=== PATIENT | male | born 1945 | race Caucasian/White ===

== ENCOUNTER 2019-03-10 07:06 | Emergency (ER) | payer MEDICARE, BC, SELFPAY ==
[2019-03-10 07:21] VITALS: BP 158/96; PULSE 79; RESP 18; TEMP 36.9; O2SAT 95
--- NOTE | 2019-03-10 07:33 | ED.GENADUL_ITS ---
Discharge Plan Disposition Patient Disposition: HOME Condition: Good Discharge Details Chief Complaint: Urinary Clinical Impression: UTI (urinary tract infection) Primary Care Provider: Vero Pagan V ED Provider: Rolando Mitchell Home Meds and New Rx's Prescriptions: New levofloxacin 500 mg tablet 500 mg PO DAILY Qty: 6 RF: 0 Continued travoprost [Travatan Z] 2.5 ML drops 1 drp Ophthalmic DAILY RF: 0 finasteride 5 MG tablet 5 mg PO DAILY Qty: 30 RF: 0 epinephrine 0.3 MG/SYR auto-injector 0.3 mg IJ DIRECTED RF: 0 Discharge Instructions Instructions: Levofloxacin (By mouth), Urinary Tract Infection in Men (ED) Additional Instructions: Urine has been sent off for culture. Please restart the finasteride. Please take the levofloxacin as directed. Call for follow-up appointment with Dr. Olmos next week. Return to the ED over the weekend if you develop fever,\flank pain, abdominal pain, inability or difficulty urinating. Referrals: Rich Olmos MD [ [facility] STAFF PHYSICIAN] - Medical Decision Making 73-year-old gentleman presenting with gross hematuria. He is afebrile here. His vital signs are good. He has no CVAT. His abdomen is benign. He has had a previous work-up for hematuria. Patient has seen Dr. Olmos in the past. He is no longer taking the finasteride. Previous episode 5 years ago was thought to be related to UTI and prostatitis. Case discussed with Dr. Olmos directly. As patient has had hematuria work-up previously and is presenting with gross hematuria but otherwise looks and feels well recommend restarting finasteride and starting Levaquin for treatment. Patient history includes allergy to ciprofloxacin but when I discussed this with patient he denies stating that he has had Cipro without problem. Urine sent for urine culture. Will obtain bladder scan and if no significant retention will avoid catheter for now. Follow-up with Dr. Olmos next week. Return to the ED over the weekend if any fever, flank pain, abdominal pain, inability to urinate, other concerns. HPI General Mode of arrival: ambulatory . Date/Time Provider Initiated Documentation: 03/10/19 07:33 . Limitations to Documentation: no limitations . Information obtained by: patient . HPI Narrative: Patient presents to ED with complaint of dark/bloody urine. Symptoms started last night. He has been up most of the night urinating but does not have a sense of urgency currently. He has no dysuria. He has no flank pain or abdominal pain. He has had no fevers or chills that he is aware of but did wake up sweating last night. He is not on blood thinners. He has a prior history of gross hematuria with clots about 5 years ago. He had a work-up that included renal ultrasound as well as cystoscopy which were negative. He was treated for infection. He has not had issues since then. Related Data Home Medications Medication Instructions Recorded Confirmed travoprost [Travatan Z] 1 drp OPHTHALMIC DAILY drp 08/28/15 06/15/17 epinephrine 0.3 mg IJ DIRECTED 06/12/17 06/12/17 finasteride 5 mg PO DAILY #30 tab-cap 03/10/19 levofloxacin 500 mg PO DAILY #6 tab 03/10/19 Previous Rx's Medication Instructions Recorded finasteride 5 mg PO DAILY #30 tab-cap 03/10/19 levofloxacin 500 mg PO DAILY #6 tab 03/10/19 Allergies Allergy/AdvReac Type Severity Reaction Status Date / Time ciprofloxacin HCl Allergy Unknown Unverified 06/15/17 09:54 [From Cipro] amoxicillin [Amoxicillin] AdvReac Unverified 06/15/17 09:54 General Stated Complaint: Urinary ILA: 4 Review of Systems Review of Systems As documented in HPI otherwise negative as below. Const: no fever, chills, weakness Resp: no cough, SOB, pleuritic pain CV: no CP, diaphoresis, edema, syncope GI: no abdominal pain, nausea, vomiting, diarrhea Neuro: no headache, numbness, focal weakness, confusion [facility] Medical History BPH (benign prostatic hyperplasia) (Chronic) Surgical History S/P appendectomy (Acute) S/P hernia repair (Acute) Social History Smoking/Tobacco Use Status: Former Tobacco Use Alcohol Intake: never Drug use: Never Do you feel safe at home: Yes Do you feel safe in your relationship?: Yes Exam Narrative Exam Narrative: Vitals: Afebrile with normal vitals except elevated BP. Const: Obese male in NAD. HEENT: NC/AT. Normal facial exam. Lungs: Normal respiratory effort. GI: Soft. NT/ND. No guarding or rebound. Back: No CVAT. Neuro: A+O x 3. CN grossly in tact. Good strength and no focal deficit. Course Vital Signs Temperature 98.4 F 03/10/19 07:21 Pulse 79 03/10/19 07:21 Respiratory Rate 18 03/10/19 07:21 Blood Pressure 158/96 H 03/10/19 07:21 Pulse Oximetry 95 03/10/19 07:21 Temperature 98.4 F 03/10/19 07:21 Temperature Source Temporal Artery Scan 03/10/19 07:21 Pulse 79 03/10/19 07:21 Respiratory Rate 18 03/10/19 07:21 Blood Pressure 158/96 H 03/10/19 07:21 Blood Pressure Position Sitting 03/10/19 07:21 Pulse Oximetry 95 03/10/19 07:21 Oxygen Delivery Method Room Air 03/10/19 07:21 Oxygen Flow Rate 0 03/10/19 07:21
[2019-03-10] MEDS: levoFLOXacin 500 MG TAB PO (08:29)
== END 2019-03-10 08:29 | disposition home or self-care (01) ==
PROVIDERS: Emergency Provider Emergency Medicine; PCP Family Medicine
DX: N39.0 Urinary tract infection, site not specified (principal); N40.1 Benign prostatic hyperplasia with lower urinary tract symptoms; R31.0 Gross hematuria
CPT/HCPCS: 99283; 81003

== ENCOUNTER 2019-03-10 17:49 | Observation (INO) | payer MEDICARE, BC, SELFPAY ==
[2019-03-10 17:59] VITALS: BP 168/89; PULSE 94; RESP 16; TEMP 36.5; O2SAT 95
--- NOTE | 2019-03-10 18:12 | W.ED.GENAD ---
Discharge Plan Disposition Patient Disposition: [facility] INPATIENT Condition: Fair Discharge Details Chief Complaint: Urinary Clinical Impression: Acute urinary retention, Gross hematuria Primary Care Provider: Vero Pagan V ED Provider: Rolando Mitchell Home Meds and New Rx's Prescriptions: Continued Travatan Z 2.5 ML drops 1 drp Ophthalmic DAILY RF: 0 levofloxacin 500 mg tablet 500 mg PO DAILY Qty: 6 RF: 0 finasteride 5 MG tablet 5 mg PO DAILY Qty: 30 RF: 0 epinephrine 0.3 MG/SYR auto-injector 0.3 mg IJ DIRECTED RF: 0 Medical Decision Making <Markell Messina MD - Last Filed: 03/10/19 19:45> 73-year-old male with a history of BPH, seen earlier this morning with hematuria, diagnosed with urinary tract infection, placed on Levaquin, discharged home. He now returns this evening with urinary hesitancy, difficulty starting flow of urine and ongoing hematuria. Mildly uncomfortable with pressure 168/89. Bedside bladder scan with 500 cc of retained urine. Three-way Gomez catheter placed, bladder irrigated with return of pink-colored urine and no further obstruction. Screening laboratories obtained: CBC shows a white count of 6, hematocrit 47, platelets 204. Chemistries reassuring with a BUN of 8, creatinine of 0.8 Case was discussed with Dr. Olmos. As the patient initially has been able to clear his urinary obstruction, he likely will be stable for discharge to home with a leg bag, and will be followed up in urology clinic. He is to continue the previously prescribed antibiotic. Will sign out to Dr. Mitchell pending review of patient's response to ongoing Gomez irrigation. <Rolando Mitchell MD - Last Filed: 03/10/19 21:37> Patient signed out to me to reevaluate after three-way Gomez placed for gross hematuria. Patient continues to clot off. I personally manipulated the Gomez and hand irrigated. Clots were removed. Within half an hour of CBI he had clotted off again. He is not on blood thinners. His laboratory studies are fine. I spoke with Dr. Olmos. He requested that we obtain hematuria catheter (24 [place] three-way Gomez) from the OR. Gomez was replaced and CBI restarted. Patient to be admitted overnight for CBI and evaluation by Dr. Olmos in the morning. We will continue Levaquin and finasteride. Will make n.p.o. after midnight. Lab Data Lab results reviewed: Yes I reviewed the patient's lab results. HPI <Markell Messina MD - Last Filed: 03/10/19 19:45> General Mode of arrival: ambulatory. Date/Time Provider Initiated Documentation: 03/10/19 18:03. Limitations to Documentation: no limitations. Information obtained by: patient. History of Present Illness 73 year old M presents to the emergency department with the chief complaint of Urinary urgency, decreased flow, described as mild, Quality is described as dull and constant, and is localized to the pelvis and genitals. Patient reports no radiation. Patient started experiencing this hour(s) and it has been constant. No relieving factors improve symptom(s), No exacerbating factors reported . Patient notes no other symptoms.. Patient did receive the following treatments prior to arrival, other (11) Related Data Home Medications Medication Instructions Recorded Confirmed Travatan Z 1 drp OPHTHALMIC DAILY drp 08/28/15 03/10/19 epinephrine 0.3 mg IJ DIRECTED 06/12/17 03/10/19 finasteride 5 mg PO DAILY #30 tab-cap 03/10/19 03/10/19 levofloxacin 500 mg PO DAILY #6 tab 03/10/19 03/10/19 Previous Rx's Medication Instructions Recorded finasteride 5 mg PO DAILY #30 tab-cap 03/10/19 levofloxacin 500 mg PO DAILY #6 tab 03/10/19 Allergies Allergy/AdvReac Type Severity Reaction Status Date / Time ciprofloxacin HCl Allergy Unknown Unverified 03/10/19 19:13 [From Cipro] amoxicillin [Amoxicillin] AdvReac Unverified 03/10/19 19:13 General Stated Complaint: Urinary ILA: 3 Review of Systems <Markell Messina MD - Last Filed: 03/10/19 19:45> Review of Systems No fever or chills, no vomiting, 6 systems reviewed and otherwise negative. PFSH <Markell Messina MD - Last Filed: 03/10/19 19:45> Medical History BPH (benign prostatic hyperplasia) (Chronic) Surgical History S/P appendectomy (Acute) S/P hernia repair (Acute) Social History Smoking/Tobacco Use Status: Former Tobacco Use Alcohol Intake: never Drug use: Never Do you feel safe at home: Yes Do you feel safe in your relationship?: Yes Exam <Markell Messina MD - Last Filed: 03/10/19 19:45> Narrative Exam Narrative: GEN: awake, alert, oriented 3. Pleasant, well groomed, interactive. HEAD: Normocephalic, atraumatic ENT: Mucous membranes moist, oropharynx unremarkable, External ear exam unremarkable EYES: PERRL, EOMI NECK: Full ROM, no MARIO ALBERTO, no menigismus CHEST/RESP: Nontender, clear to auscultation bilateral, no wheeze/rhonchi/rales CARDIOVASCULAR: RRR, no murmur, rub romulo. 2+ Rad pulse bilateral ABDOMEN: Soft, suprapubic mild distention and tenderness without rebound or guarding, no mass. +Bowel sounds EXT: Full ROM, no edema, no rash Neuro: Grossly normal neurologic exam, conversant, interactive. Psych: Speech fluent, thoughts congruent, affect normal Course <Markell Messina MD - Last Filed: 03/10/19 19:45> Vital Signs Temperature 36.5 C 03/10/19 17:59 Pulse 94 H 03/10/19 17:59 Respiratory Rate 16 03/10/19 17:59 Blood Pressure 168/89 H 03/10/19 17:59 Pulse Oximetry 95 03/10/19 17:59 Temperature 36.5 C 03/10/19 17:59 Temperature Source Skin 03/10/19 17:59 Pulse 94 H 03/10/19 17:59 Respiratory Rate 16 03/10/19 17:59 Blood Pressure 168/89 H 03/10/19 17:59 Pulse Oximetry 95 03/10/19 17:59 Oxygen Delivery Method Room Air 03/10/19 17:59 Oxygen Flow Rate 0 03/10/19 17:59 Pain Level 8 03/10/19 17:59 Sign Out <Markell Messina MD - Last Filed: 03/10/19 19:45> Sign Out Data: Sign Out Comment: followup/recheck after bladder irrigation Last updated by Markell Messina MD at 03/10/19 19:46
[2019-03-10 18:34] LABS: Bilirubin Small (Negative); Blood Large (Negative); Clarity Cloudy (Clear); Glucose Negative (Negative); Ketones Trace mg/dL (Negative); Leukocyte Esterase Negative (Negative); Nitrite Negative (Negative); Specific Gravity 1.015 (1.005-1.025)
[2019-03-10 18:46] LABS: Bacteria Few HPF (Negative); C & S Indicated? Yes; Casts Negative LPF (Negative); Crystals Negative HPF (Negative); Epithelial Cells Rare HPF (Negative); Mucus Moderate (Negative); Other Cells Negative (Negative); RBC >50 (0-2)
[2019-03-10 19:23] LABS: Abs Immature Grans 0.01 k/cumm (0.0-0.09); Absolute Basophil Count 0.04 k/cumm (0.0-0.2); Absolute Eosinophil Count 0.15 k/cumm (0.0-0.7); Absolute Lymphocyte Count 1.57 k/cumm (1.2-3.4); Absolute Monocyte Count 0.69 k/cumm (0.11-0.7); Absolute Neutrophil Count 3.76 k/cumm (1.2-6.7); Basophils % 0.6; Eosinophils % 2.4; HCT 47.8 % (40.0-50.0); HGB 16.2 g/dL (13.5-17.5); Immature Grans % 0.2; Lymphocytes % 25.2; Mean Corp. HGB Concentration 33.9 g/dL (32.0-36.0); Mean Corpuscular Hemoglobin 30.1 pg (27.0-33.0); Mean Corpuscular Volume 88.8 fL (80-95); Mean Platelet Volume 10.1 fL (8.0-11.0); Monocytes % 11.1; Neutrophils % 60.5; Platelet Count 204 x1000/uL (130-400); RBC 5.38 m/cumm (4.50-6.00); RBC Distribution Width 13.6 % (11.8-14.1); White Blood Cell Count 6.22 k/cumm (4.4-10.8)
[2019-03-10 19:39] LABS: ALT 20 U/L (12-78); AST 11 U/L (15-37); Albumin 3.3 g/dL (3.4-5.0); Alkaline Phosphatase 94 U/L (46-116); BUN 8 mg/dL (7-18); Bilirubin, Total 0.9 mg/dL (0.2-1.0); CREATININE 0.83 mg/dL (0.70-1.30); Calcium 8.5 mg/dL (8.5-10.1); Chloride 104 mmol/L (98-107); Glucose 100 mg/dL (70-100); Potassium 3.6 mmol/L (3.5-5.1); Sodium 139 mmol/L (136-145); Total Protein 6.7 g/dL (6.4-8.2)
--- NOTE | 2019-03-10 20:32 | NUR.NOTE ---
Nursing Note: After nearly 3,000 ML of fluid irrigating patients bladder the provider went in to manually irrigate the bladder in attempt to break up the clots present in the bladder. Provider got several clots out and since then he had 2 episodes where the catheter became occluded. Patient is now working on his second bag of irrigation fluid. It is running wide open and the color of the drainage is clear at this time.
[2019-03-10 21:44] VITALS: BP 154/98; PULSE 80; RESP 16; TEMP 37; O2SAT 96
[2019-03-10 22:35] VITALS: BP 156/92; PULSE 81; RESP 16; TEMP 37; O2SAT 95
[2019-03-10 22:40] VITALS: BP 154/98; PULSE 80; RESP 16; TEMP 37; O2SAT 96
[2019-03-10] MEDS: Lactated Ringers 1,000 ML 125 ML IV (22:58)
[2019-03-10 23:03] VITALS: BP 156/92; PULSE 81; RESP 18; TEMP 37; O2SAT 95
[2019-03-11] MEDS: Lactated Ringers 1,000 ML 125 ML IV (06:30)
[2019-03-11 07:15] VITALS: BP 158/80; PULSE 80; RESP 18; TEMP 36.8; O2SAT 97
--- NOTE | 2019-03-11 07:38 | HPE_ITS ---
Date of service: 03/11/19 Time of Service: 07:38 Assessment and Plan (1) Clot retention of urine: Current visit: Yes Status: Acute Clinically, it appears that the staff has been able to clear out his clots with hand irrigation alone. I discontinued his bladder irrigation this morning. If the urine remains clear over the next hour or so, we can probably remove his catheter and give him a voiding trial. If the urine returns to a bloody tent, we will leave the catheter, restart bladder irrigation and make arrangements to go to the operating room for cystoscopy and clot evacuation. History of Present Illness Chief Complaint: Clot retention Narrative: This is a 73-year-old gentleman who was last seen in my office over 3 years ago. He has a history of BPH with lower urinary tract symptoms. He also has a history of an elevated PSA. In the past, he had gross hematuria that was evaluated by Dr. Le in 2011. No significant uropathology was identified. He presented to the emergency room yesterday with 24 hours of gross painless hematuria. We started him on an antibiotic pending a urine culture. We also had him restart his finasteride (he had stopped about a year ago) in case the bleeding was from his prostate. We had planned on seeing him as an outpatient. He returned to the emergency room last evening in a lot retention. A catheter was placed. Bladder irrigation was begun but the catheter continued to occlude. He was admitted for bladder irrigation and possible clot evacuation this morning. Since his admission, he has had a few clots and irrigated. He has had some bladder spasms. He is not on any type of anticoagulants. He quit smoking between 5 and 10 years ago. Review of Systems Review of Systems No fevers or chills No dysphasia No diabetes or thyroid No shortness of breath, cough or hemoptysis No chest pain or palpitations No nausea, vomiting, hepatitis, ulcers, jaundice, diarrhea or constipation No seizures, strokes or peripheral neuropathy No bleeding disorders or anemia No gout [facility] Medical History (Updated 03/11/19 @ 07:44 by Rich Olmos MD) BPH (benign prostatic hyperplasia) (Chronic) Clot retention of urine (Acute) Elevated PSA (Acute) Surgical History (Updated 03/11/19 @ 07:42 by Rich Olmos MD) H/O cystoscopy (Acute) S/P appendectomy (Acute) S/P hernia repair (Acute) Social History Smoking/Tobacco Use Status: Former Tobacco Use Alcohol Intake: never Drug use: Never Do you feel safe at home: Yes Do you feel safe in your relationship?: Yes Meds Home Medications Medication Instructions Recorded Confirmed Type Travatan Z 1 drp OPHTHALMIC DAILY drp 08/28/15 03/10/19 History epinephrine 0.3 mg IJ DIRECTED 06/12/17 03/10/19 History finasteride 5 mg PO DAILY #30 tab-cap 03/10/19 03/10/19 Rx levofloxacin 500 mg PO DAILY #6 tab 03/10/19 03/10/19 Rx Allergies Allergy/AdvReac Type Severity Reaction Status Date / Time ciprofloxacin HCl Allergy Unknown Unverified 03/10/19 19:13 [From Cipro] amoxicillin [Amoxicillin] AdvReac Unverified 03/10/19 19:13 Exam Narrative Exam Narrative: He is in no current distress. He is cooperative. He does not appear septic or toxic. His vital signs are documented elsewhere. His chest wall motion is normal. His lungs are clear. Cardiac exam shows a regular rate and rhythm. His abdomen is obese but soft with no guarding or rebound tenderness. A hematuria catheter is in place and is draining clear irrigant with bladder irrigation is a slow rate. I hand irrigated the catheter this morning and did not obtain any clots. He is awake, alert and oriented. Results Labs : 03/10/19 19:14 03/10/19 19:14 Laboratory Results - last 24 hr 03/10/19 03/10/19 03/10/19 18:30 19:14 19:14 WBC 6.22 RBC 5.38 Hgb 16.2 Hct 47.8 MCV 88.8 MCH 30.1 MCHC 33.9 RDW 13.6 Plt Count 204 MPV 10.1 Immature Gran % 0.2 Neutrophils % 60.5 Lymphocytes % 25.2 Monocytes % 11.1 Eosinophils % 2.4 Basophils % 0.6 Absolute Neutrophils 3.76 Absolute Lymphocytes 1.57 Absolute Monocytes 0.69 Absolute Eosinophils 0.15 Absolute Basophils 0.04 Sodium 139 Potassium 3.6 Chloride 104 Carbon Dioxide 27.0 Anion Gap 8.0 BUN 8 Creatinine 0.83 Estimated GFR/1.73 m2 >= 60.00 Glucose 100 Calcium 8.5 Total Bilirubin 0.9 AST 11 L ALT 20 Alkaline Phosphatase 94 Total Protein 6.7 Albumin 3.3 L Urine Color Brown Urine Clarity Cloudy Urine pH 6.0 Ur Specific [place] 1.015 Urine Protein >=300 H Urine Ketones Trace H Urine Blood Large H Urine Nitrite Negative Urine Bilirubin Small H Urine Urobilinogen 1.0 H Ur Leukocyte Esterase Negative Urine RBC >50 H Urine WBC 5-10 Ur Epithelial Cells Rare Urine Crystals Negative Urine Bacteria Few Urine Casts Negative Urine Mucus Moderate Urine Other Negative Ur Culture Indicated? Yes Urine Glucose Negative Last Vital Signs Temp 37 C 03/10/19 23:03 Pulse 81 03/10/19 23:03 Resp 18 03/10/19 23:03 BP 156/92 H 03/10/19 23:03 Pulse Ox 95 03/10/19 23:03
[2019-03-11] MEDS: Finasteride 5 MG TAB PO (08:20)
[2019-03-11] MEDS: levoFLOXacin 500 MG TAB PO (08:20)
--- NOTE | 2019-03-11 12:49 | W.PM.DS.N ---
Date of service: 03/11/19 Time of Service: 12:49 DS: Diagnosis Discharge Diagnosis (1) Clot retention of urine: Status: Acute Discharge Plan Disposition Patient Disposition: HOME Condition: Fair Discharge Details Chief Complaint: Urinary Clinical Impression: Acute urinary retention, Gross hematuria Reason For Visit: GROSS HEMATURIA Admit Date/Time: 03/10/19 21:19 Admit Provider: Rich Olmos Attending Provider: Rich Olmos Primary Care Provider: Vero Pagan V ED Provider: Rolando Mitchell [facility] Course Hospital Course: The patient was admitted and continuous bladder irrigation was begun. We hand irrigated out multiple clots. On the morning after admission, his urine cleared up. We discontinued the bladder irrigation and we were able to remove his catheter. He began voiding on his own. He did pass a clot, but he has been able to empty his bladder. He is being discharged to home today without a catheter. Home Meds and New Rx's Prescriptions: Continued Travatan Z 2.5 ML drops 1 drp Ophthalmic DAILY RF: 0 levofloxacin 500 mg tablet 500 mg PO DAILY Qty: 6 RF: 0 finasteride 5 MG tablet 5 mg PO DAILY Qty: 30 RF: 0 epinephrine 0.3 MG/SYR auto-injector 0.3 mg IJ DIRECTED RF: 0 Discharge Instructions Instructions: Urinary Retention in Men (ED) Additional Instructions: Continue your antibiotic until you hear from my office regarding the urine culture early next week Follow-up in my office in about 1 week. Continue taking the finasteride until your follow-up appointment Stand Alone Forms: Nursing Discharge Form Referrals: Rich Olmos MD [ [facility] STAFF PHYSICIAN] - Activity:: Activity as Tolerated Equipment/Supplies:: No Equipment Needed Diet:: As Tolerated Discharge Orders Discharge Orders: Discharge Order (Routine); Ordered 03/11/19 Ordered By: Rich Olmos Exam Narrative Exam Narrative: He looks well. He does not appear septic or toxic. His vital signs are documented elsewhere. His lungs are clear Cardiac exam shows a regular rate and rhythm His abdomen is obese but soft. On bladder scan, his residual urine is less than 50 cc He is awake and alert His urine is grossly transparent with a clot in the urinal DS: Data Vitals/I&O Vitals and I&O: Vital Signs Temperature 36.8 C 03/11/19 07:15 Temperature Source Tympanic 03/11/19 07:15 Pulse 80 03/11/19 07:15 Pulse Rhythm Regular 03/11/19 08:13 Respiratory Rate 18 03/11/19 07:15 Respiratory Effort 03/11/19 08:13 Respiratory Depth Normal 03/11/19 08:13 Respiratory Pattern Normal 03/10/19 22:35 Blood Pressure 158/80 H 03/11/19 07:15 Pulse Oximetry 97 03/11/19 07:15 Oxygen Delivery Method Room Air 03/11/19 07:15 Oxygen Flow Rate 0 03/11/19 07:15 Pain Level 0 03/11/19 07:15 Intake & Output 03/10/19 03/11/19 03/11/19 23:59 11:59 23:59 Intake Total 941.667 / 941.667 Output Total 800 / 800 10 / 10 Balance -800 / -800 931.667 / 931.667 Weight 108.862 kg Intake: IV 941.667 / 941.667 Output: Urine 800 / 800 10 10 Other: Urine Color [place] Urine Appearance Hematuria Hematuria Clots Comment pt' rasmussen removed about 1hr ago. pt concerned that he is voiding in small amounts without empting as he did when he was admitted Voiding Methods Urinal Labs on day of discharge: Labs from last 24 hours 03/10/19 03/10/19 03/10/19 19:14 19:14 18:30 WBC 6.22 RBC 5.38 Hgb 16.2 Hct 47.8 MCV 88.8 MCH 30.1 MCHC 33.9 RDW 13.6 Plt Count 204 MPV 10.1 Immature Gran % 0.2 Neutrophils % 60.5 Lymphocytes % 25.2 Monocytes % 11.1 Eosinophils % 2.4 Basophils % 0.6 Absolute Neutrophils 3.76 Absolute Lymphocytes 1.57 Absolute Monocytes 0.69 Absolute Eosinophils 0.15 Absolute Basophils 0.04 Sodium 139 Potassium 3.6 Chloride 104 Carbon Dioxide 27.0 Anion Gap 8.0 BUN 8 Creatinine 0.83 Estimated GFR/1.73 m2 >= 60.00 Glucose 100 Calcium 8.5 Total Bilirubin 0.9 AST 11 L ALT 20 Alkaline Phosphatase 94 Total Protein 6.7 Albumin 3.3 L Urine Color Brown Urine Clarity Cloudy Urine pH 6.0 Ur Specific [place] 1.015 Urine Protein >=300 H Urine Ketones Trace H Urine Blood Large H Urine Nitrite Negative Urine Bilirubin Small H Urine Urobilinogen 1.0 H Ur Leukocyte Esterase Negative Urine RBC >50 H Urine WBC 5-10 Ur Epithelial Cells Rare Urine Crystals Negative Urine Bacteria Few Urine Casts Negative Urine Mucus Moderate Urine Other Negative Ur Culture Indicated? Yes Urine Glucose Negative Preliminary micro results at discharge 03/10/19 18:30 Urine Culture - Preliminary Urine - Reflex from [facility] Medical History BPH (benign prostatic hyperplasia) (Chronic) Clot retention of urine (Acute) Elevated PSA (Acute) Surgical History H/O cystoscopy (Acute) S/P appendectomy (Acute) S/P hernia repair (Acute) Social History Smoking/Tobacco Use Status: Former Tobacco Use Alcohol Intake: never Drug use: Never Do you feel safe at home: Yes Do you feel safe in your relationship?: Yes
--- NOTE | 2019-03-11 14:57 | INITIAL_ITS ---
Care Management Initial Assess REASON FOR HOSPITALIZATION:: Gross Hematuria PAST MEDICAL HISTORY/PAST SURGICAL HISTORY:: BPH, clot retention of urine, elevated PSA, cystoscopy, appendectomy, hernia repair. PREVIOUS FUNCTIONAL STATUS/SOCIAL/FAMILY SUPPORTS:: Dontrell resides in [place] with his , Jessika. 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 Dontrell is independent with ADLs at baseline and enjoys caring for his home and gardens. He reports they are three years ahead with [employer] as well. CURRENT FUNCTIONAL STATUS:: Dontrell was lying in bed when CM met with him, his at his bedside. He was forthcoming with information and pleasant in interaction. ADVANCE DIRECTIVES:: Reports unfinished document at home; CM reviewed process of completion. Has patient been provided with information about the portal?: Yes Did the patient sign up for the portal?: No (No email) CODE STATUS:: Full Code INSURANCE COVERAGE / FINANCIAL ISSUES:: BS. Medicare CURRENT HOME/COMMUNITY SERVICES/EQUIPMENT:: No current services or equipment. PRIMARY CARE PHYSICIAN:: Vero Pagan POTENTIAL DISCHARGE NEEDS:: Follow up appointment with PCP. PATIENT/FAMILY EDUCATION NEEDS:: Review of discharge instructions, discuss Ask Me Three. ANTICIPATED BARRIERS TO DISCHARGE:: None identified. TRANSPORTATION:: Via private vehicle with his . PLAN:: Dontrell will discharge home when ready per MD. He will follow up with Dr. Olmos and his PCP as well as his plan of care as prescribed. He will transport via private vehicle with his , Jessika.
== END 2019-03-11 14:07 | disposition home or self-care (01) ==
LOC: ER 21:37 → MS 22:30
PROVIDERS: Emergency Medicine; Admitting Provider Urology; Emergency Provider Emergency Medicine; PCP Family Medicine; Visit Provider Urology
DX: N32.89 Other specified disorders of bladder (principal); N40.1 Benign prostatic hyperplasia with lower urinary tract symptoms; R33.8 Other retention of urine; R97.20 Elevated prostate specific antigen [PSA]
CPT/HCPCS: 36415; 51702; 80053; 99217; 99222; 99236; 99283; 99285; 81003; 81015; 85025; 87086; 99284; G0378

== ENCOUNTER 2019-03-15 16:33 | Emergency (ER) | payer MEDICARE, BC, SELFPAY ==
--- NOTE | 2019-03-15 16:50 | NUR.NOTE ---
Nursing Note: pt was admitted and discharged Thursday for bladder irrigation post inability to urinate due to clots PT states he had an anointment with Nickolas on Thursday in regards to this. Olmos to PT to return to the ER is symptoms returned pt has been throwing clots since 1300
[2019-03-15 16:57] VITALS: BP 144/81; PULSE 103; RESP 20; TEMP 36.8; O2SAT 92
--- NOTE | 2019-03-15 17:53 | W.ED.GENAD ---
Discharge Plan Disposition Patient Disposition: HOME Discharge Details Chief Complaint: Urinary Clinical Impression: Hematuria Primary Care Provider: Vero Pagan V ED Provider: Gaetano Jennings Home Meds and New Rx's Prescriptions: Continued Travatan Z 2.5 ML drops 1 drp Ophthalmic DAILY RF: 0 levofloxacin 500 mg tablet 500 mg PO DAILY Qty: 6 RF: 0 finasteride 5 MG tablet 5 mg PO DAILY Qty: 30 RF: 0 epinephrine 0.3 MG/SYR auto-injector 0.3 mg IJ DIRECTED RF: 0 Discharge Instructions Instructions: Gomez Catheter Placement and Care (ED), Hematuria (ED) Additional Instructions: Please follow-up with Dr. Olmos. Call tomorrow to arrange timely follow-up. Return to the ER for any worsening or new concerning symptoms. Referrals: Rich Olmos MD [ [facility] STAFF PHYSICIAN] - Discharge Data Discharge Date/Time-TO BE ENTERED AT DEPARTURE: 03/15/19 18:43 Medical Decision Making Patient was seen during code black and at time of ED surge delaying documentation of care. 73yo male here with hematuria and urinary retention suspect secondary to clot. Postvoid residual of 450 mL noted by nursing. Patient was recently treated by Dr. Olmos here in the hospital last week. I called and spoke with Dr. Olmos and discussed ED presentation and he recommended a 20 Bulgarian 5 cc Gomez catheter replaced. He does not recommend irrigating at this time. He will plan to see the patient in follow-up on . Catheter was placed by nursing without difficulty. Patient had blood-tinged urinary output >450mL with some clots. Patient was noted to be feeling better. Urinalysis was reviewed and not consistent with UTI. I did review prior urine culture from recent visit 03/10/2019 that had no growth. Usual customary discharge instructions were provided. Patient understands importance of timely follow-up and will call Dr. Olmos's office tomorrow to arrange this. He understands he should return immediately should any worsening or new concerning symptoms. HPI General Mode of arrival: ambulatory. Date/Time Provider Initiated Documentation: 03/15/19 16:38. Limitations to Documentation: no limitations. Information obtained by: patient. HPI Narrative: 73-year-old male with history of hematuria, here with blood in his urine and lower abdominal fullness. Patient notes he was recently treated here by Dr. Olmos with catheter placement, irrigation and subsequent catheter removal late last week. This weekend he was urinating normally. He noted to have a blood clot in his urine last night which then resolved and subsequently had clear urine. Today he notes that he again has hematuria with some clots. Symptoms are moderate. No modifiers. No associated flank pain. No fever. Patient does note that he has chronic intermittent hematuria times year of unclear etiology. Related Data Home Medications Medication Instructions Recorded Confirmed Travatan Z 1 drp OPHTHALMIC DAILY drp 08/28/15 03/10/19 epinephrine 0.3 mg IJ DIRECTED 06/12/17 03/10/19 finasteride 5 mg PO DAILY #30 tab-cap 03/10/19 03/10/19 levofloxacin 500 mg PO DAILY #6 tab 03/10/19 03/10/19 Previous Rx's Medication Instructions Recorded finasteride 5 mg PO DAILY #30 tab-cap 03/10/19 levofloxacin 500 mg PO DAILY #6 tab 03/10/19 Allergies Allergy/AdvReac Type Severity Reaction Status Date / Time ciprofloxacin HCl Allergy Unknown Unverified 03/10/19 19:13 [From Cipro] amoxicillin [Amoxicillin] AdvReac Unverified 03/10/19 19:13 General Stated Complaint: Urinary ILA: 3 Review of Systems Review of Systems All systems reviewed & are unremarkable except as noted in HPI and below PFSH Medical History BPH (benign prostatic hyperplasia) (Chronic) Clot retention of urine (Acute) Elevated PSA (Acute) Surgical History H/O cystoscopy (Acute) S/P appendectomy (Acute) S/P hernia repair (Acute) Social History Smoking/Tobacco Use Status: Former Tobacco Use Alcohol Intake: never Drug use: Never Do you feel safe at home: Yes Do you feel safe in your relationship?: Yes Exam Const General: no acute distress Eyes Conjunctivae: normal conjunctivae Sclera: normal sclerae Neck Neck: trachea midline and supple Resp Auscultation: clear to auscultation bilaterally, no rales, no rhonchi and no wheezes Cardio Jugular venous pressure: no JVD Rate: regular rate and not tachycardic Rhythm: regular rhythm GI Palpation: soft, not firm, no guarding, no masses and not rigid Other: lower abdominal/suprpubic fullness Skin General skin exam: no rashes or lesions noted Neuro General: alert, awake and tone normal Extrem General: no edema Psych Appearance: grossly normal Mental Status: mental status grossly normal Course Vital Signs Temperature 36.8 C 03/15/19 16:57 Pulse 103 H 03/15/19 16:57 Respiratory Rate 20 03/15/19 16:57 Blood Pressure 144/81 H 03/15/19 16:57 Pulse Oximetry 92 L 03/15/19 16:57 Temperature 36.8 C 03/15/19 16:57 Temperature Source Temporal Artery Scan 03/15/19 16:57 Pulse 103 H 03/15/19 16:57 Respiratory Rate 20 03/15/19 16:57 Respiratory Effort Non-Labored 03/15/19 17:00 Blood Pressure 144/81 H 03/15/19 16:57 Blood Pressure Position Sitting 03/15/19 16:57 Pulse Oximetry 92 L 03/15/19 16:57 Oxygen Delivery Method Room Air 03/15/19 16:57 Oxygen Flow Rate 0 03/15/19 16:57 Pain Level 6 03/15/19 16:57
[2019-03-15] MEDS: Lidocaine 2% Jelly 11 ML SYR (18:10)
[2019-03-15 18:54] LABS: Bilirubin Small (Negative); Clarity Cloudy (Clear); Glucose Negative (Negative); Ketones Negative (Negative); Leukocyte Esterase Negative (Negative); Nitrite Negative (Negative); Specific Gravity 1.015 (1.005-1.025)
[2019-03-15 18:55] LABS: Bacteria Few HPF (Negative); Blood Large (Negative); C & S Indicated? No; Casts Negative LPF (Negative); Crystals Negative HPF (Negative); Epithelial Cells Negative HPF (Negative); Mucus Trace (Negative); Other Cells Negative (Negative); RBC >50 (0-2); WBC Negative HPF (0-5)
== END 2019-03-15 18:43 | disposition home or self-care (01) ==
PROVIDERS: Emergency Provider Student in an Organized Health Care Education/Training Program; PCP Family Medicine
DX: R31.9 Hematuria, unspecified (principal); N40.1 Benign prostatic hyperplasia with lower urinary tract symptoms; R33.8 Other retention of urine
CPT/HCPCS: 51702; 99283; 81003; 81015

== ENCOUNTER 2019-03-16 09:15 | Outpatient (CLI) | payer MEDICARE, BC, SELFPAY ==
--- NOTE | 2019-03-16 11:30 | DI.US_ITS ---
SYMPTOMS/DIAGNOSIS: CLOT RETENTION OF URINE, R33.8 RENAL ULTRASOUND: The right kidney measures 13.9 cm in length. The left kidney measures 12.4 cm in length. No hydronephrosis, mass or calcifications are identified. The prostate is noted to be enlarged, measuring 6 x 6.9 x 5.4 cm. A catheter is seen within the bladder, which is decompressed. IMPRESSION: Enlarged prostate. No evidence of hydronephrosis. The urinary bladder is decompressed via Gomez catheter.
== END 2019-03-16 09:35 ==
PROVIDERS: PCP Family Medicine; Visit Provider Nurse Practitioner Gerontology
DX: R33.8 Other retention of urine (principal); Z96.0 Presence of urogenital implants; N40.1 Benign prostatic hyperplasia with lower urinary tract symptoms; R31.0 Gross hematuria
CPT/HCPCS: 76770; 99204; 99215

== ENCOUNTER 2019-03-17 15:17 | Observation (INO) | payer MEDICARE, BC, SELFPAY ==
[2019-03-17] VITALS (11 sets, daily range): BP systolic 121–172; BP diastolic 73–101; PULSE 70–89; RESP 8–20; TEMP 35.5–36.6; O2SAT 92–97
[2019-03-17] MEDS: Lactated Ringers 1,000 ML 80 ML IV ×2 (13:40→16:21)
[2019-03-17] MEDS: ceFAZolin 1 GM/50 ML BAG IVPB ×2 (13:40→21:32)
[2019-03-17] MEDS: Lidocaine 2% Jelly 6 ML SYR (14:14)
--- NOTE | 2019-03-17 16:13 | NUR.NOTE ---
Nursing Note: Pt was brought up in stable condition from the PACU. Vitals taken. Pt stand/pivot to the bed. Tolerated well. A&Ox3, denies HAGEN. Denies dizziness w/ standing. Clear/diminished lung sounds. Denies SOB. Denies chest pain/discomfort. Not passing gas, BM yesterday 03/16. Abdomen round and firm. Gomez drainging w/ CBI running - patent - draining red, but no clots. No numbness/tingling present. Radial/pedal pulses palpable. No edema. L PIV hand 20 g has LR running @ 125 cc/hr. Pt tolerating liquids well. Jessika, pt's , is present.
[2019-03-17] MEDS: ACETAMINOPHEN 1,000 MG/100 ML BTL 400 MG IVPB (16:52)
[2019-03-17] MEDS: Lactated Ringers 1,000 ML 125 ML IV (18:38)
[2019-03-18] MEDS: Lactated Ringers 1,000 ML 125 ML IV ×3 (01:34→17:17)
[2019-03-18] MEDS: ceFAZolin 1 GM/50 ML BAG IVPB (06:37)
[2019-03-18 07:42] VITALS: BP 118/80; PULSE 82; RESP 18; TEMP 36.4; O2SAT 95
[2019-03-18] MEDS: Travoprost 0.004% Ophth Sol 2.5 ML BTL OP (08:33)
[2019-03-18] MEDS: Finasteride 5 MG TAB PO (08:33)
--- NOTE | 2019-03-18 09:54 | ROE_ITS ---
DATE OF PROCEDURE: March 17, 2019 PREOPERATIVE DIAGNOSIS: Gross hematuria. POSTOPERATIVE DIAGNOSIS: Gross hematuria due to prostatic enlargement. PROCEDURE: Cystoscopy; evacuation of blood clots; fulguration of prostate. SURGEON: Rich Olmos M.D. ANESTHESIA: General. COMPLICATIONS: None. HISTORY: This is a 73-year-old gentleman who has a history of recurrent episodes of gross, painless hematuria. His first episode occurred about seven years ago. The only abnormality identified was an enlarged prostate. He's had two such episodes in the past two weeks. The first episode was managed with bladder irrigat ion. When the urine cleared and we were able to clear all of his clots, the catheter was removed. About a week later he again developed gross hematuria and retention. A Gomez catheter was placed. Mani osborn then underwent a renal ultrasound which showed normal kidneys. He presents now for a cystoscopy to evaluate his lower urinary tract. OPERATIVE REPORT: The patient was brought to the Operating Room on 03/17/19. After successful induct ion of general anesthesia, he was placed in the dorsal lithotomy position. His indwelling catheter w as removed. His genitalia was prepped and draped. A 22 Mexican rigid cystoscope was passed through the urethra into the bladder. The urethra and bladde r were inspected with a 30-degree lens. His prostatic urethra was markedly enlarged and there was a very large median lobe of the prostate ju tting back into the bladder. The median lobe in fact was so large that I was unable to see the base of the bladder with the trigone. I had planned on doing a retrograde pyelogram but I was unable to d o so with our cystoscope. We did visualize a few old clots within the bladder. These were hand-irrigated out using a John sy ringe. There were other clots adherent to the prostatic mucosa. This made me believe that the prost ate was the source of his bleeding. The majority of these clots seemed adherent to the median lobe. I then removed the cystoscope and used a 26 Mexican resectoscope sheath and the bipolar cautery to coa gulate the prostatic mucosa. We had some difficulty reaching the mucosa on the median lobe, so we sw itched over to a resection loop and using bipolar cautery, trimmed off the bulk of the median lobe. We were then able to cauterize the area in question. At the completion of the procedure the urine was just light pink. Because of his recurrent bleeds we elected to pass a 24 Mexican hematuria catheter through the urethra into the bladder. The catheter b alloon was inflated with 30 cc's of sterile water. Continuous bladder irrigation with saline was the n begun. The patient tolerated this procedure well with no complications. We will plan on keeping him hospita lized overnight with bladder irrigation. cc: Vero Pagan M.D.
--- NOTE | 2019-03-18 13:11 | W.PM.PROGNOT ---
Date of Service Date of service: 03/18/19 Time of Service: 13:11 Assessment and Plan (1) Gross hematuria: Current visit: No Status: Acute With the color of his urine, I think we need to run his bladder irrigation for 1 more day. I will add in an oral anticholinergic medication to try to cut down on his spasms. (2) Clot retention of urine: Current visit: No Status: Acute Subjective Interval history since last seen: He required hand irrigation a few times overnight, but otherwise had a relatively comfortable evening. He did have a few spasms. Exam Narrative Exam Narrative: He is in no current distress. He is cooperative. His vital signs are documented elsewhere. I hand irrigated his catheter multiple times in a few small clots were obtained. He is irrigation clears the becomes more red as he has a spasm. He is awake and alert. Objective Objective Clinical Data: Vital Signs Temperature 36.4 C L 03/18/19 07:42 Temperature Source Tympanic 03/18/19 07:42 Pulse 82 03/18/19 07:42 Pulse Rhythm Regular 03/18/19 09:18 Respiratory Rate 18 03/18/19 07:42 Respiratory Effort Non-Labored 03/18/19 09:18 Respiratory Depth Normal 03/18/19 09:18 Respiratory Pattern Normal 03/18/19 09:18 Blood Pressure 118/80 03/18/19 07:42 Pulse Oximetry 95 03/18/19 07:42 Respiratory End-tidal CO2 33 03/17/19 15:43 Oxygen Delivery Method Room Air 03/18/19 07:42 Oxygen Flow Rate 0 03/18/19 07:42 Pain Level 0 03/18/19 07:42 Intake & Output 03/17/19 03/18/19 03/18/19 23:59 11:59 23:59 Intake Total 1568.000 / 7751.670 7195.667 / 2216.667 300 / 2216.667 Balance 1568.000 / 3335.572 7375.667 / 2216.667 300 / 2216.667 Weight 125.1 kg Intake: IV 1128.000 / 4068.774 5711.667 / 6.667 Oral 440 / 440 300 / 300 Other: Urine Color Pena Bright Red Urine Appearance Hematuria Hematuria Clots Comment GRAVITY BAG DRAINING INTO REDDY BAG AND INTO LARGE BUCKET Emesis Description None
[2019-03-18] MEDS: Oxybutynin 5 MG TAB PO ×2 (13:30→19:45)
--- NOTE | 2019-03-18 13:46 | PHARADMIT ---
Admission Pharmacy Clinical Review gross hematuria Code Status Full Code Current Weight 125.1 kg Renally Cleared and Narrow Therapeutic Index Meds Crcl ~83.00 mL/min current meds okay QTc Value / Action Taken n/a BP Control, Fever BP 118/80 afebrile Electrolytes reviewed n/a DVT Prophylaxis none Opiate Usage / Scheduled Bowel Regimen Ordered prn/no Plt/SCr for Heparin / Enoxaparin n/a INR for Warfarin n/a H/H stable, WBC/Bands n/a Antibiotic appropriateness none Cultures and Sensitivities none Surgical ABX d/c within 24 hr n/a DM control / Insulin Dosing n/a Heart Failure (Check EF%) (PADMINI's, B-Block, Diuretics) none IV to PO Switch n/a Home Meds Reviewed yes Home Meds Not Ordered aspirin, epinephrine, levofloxacin, Comments bladder irrigation for 1 more day per progress note
--- NOTE | 2019-03-18 15:13 | CHAPLAIN ---
Dontrell explained that he had a procedure done today with Dr. Olmos and he hopes to be going home soon. His was with him and he seems to be comfortable being here.
[2019-03-18 15:46] VITALS: BP 133/83; PULSE 83; RESP 16; TEMP 36.9; O2SAT 94
--- NOTE | 2019-03-18 15:49 | PDOC.CMIN ---
Care Management Initial Assess REASON FOR HOSPITALIZATION:: Hematuria PAST MEDICAL HISTORY/PAST SURGICAL HISTORY:: BPH, clot retention of urine, elevated PSA, cystoscopy, appendectomy, hernia repair. PREVIOUS FUNCTIONAL STATUS/SOCIAL/FAMILY SUPPORTS:: Dontrell resides in [place] with his , Jessika. 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 Dontrell is independent with ADLs at baseline and enjoys caring for his home and gardens. He reports they are three years ahead with [employer] as well. CURRENT FUNCTIONAL STATUS:: Dontrell was lying in bed when CM met with him, his Jessika at his bedside. He reviewed his recent medical interventions and surgery yesterday. He was well aware of his treatment plan, he was forthcoming with information and pleasant in interaction. ADVANCE DIRECTIVES:: Reports unfinished document at home; CM reviewed process of completion. Has patient been provided with information about the portal?: Yes Did the patient sign up for the portal?: No ((No email)) CODE STATUS:: Full Code INSURANCE COVERAGE / FINANCIAL ISSUES:: BS. Medicare CURRENT HOME/COMMUNITY SERVICES/EQUIPMENT:: No current services or equipment. PRIMARY CARE PHYSICIAN:: Vero Pagan POTENTIAL DISCHARGE NEEDS:: Follow up appointment with PCP. PATIENT/FAMILY EDUCATION NEEDS:: Review of discharge instructions, discuss Ask Me Three. ANTICIPATED BARRIERS TO DISCHARGE:: None identified. TRANSPORTATION:: Via private vehicle with his . PLAN:: Per MD, Dontrell remains on bladder irrigation and oral anticholinergic medication to decrease the amount of spasms. Dontrell will discharge home when ready per MD. He will follow up with Dr. Olmos and his PCP as well as his plan of care as prescribed. He will transport via private vehicle with his , Jessika.
[2019-03-18 23:52] VITALS: BP 130/78; PULSE 77; RESP 19; TEMP 36.8; O2SAT 98
[2019-03-19] MEDS: Lactated Ringers 1,000 ML 125 ML IV (00:44)
[2019-03-19 06:51] LABS: HCT 38.5 % (40.0-50.0); HGB 12.5 g/dL (13.5-17.5)
[2019-03-19] MEDS: Finasteride 5 MG TAB PO (07:51)
[2019-03-19] MEDS: Oxybutynin 5 MG TAB PO (07:51)
[2019-03-19] MEDS: Travoprost 0.004% Ophth Sol 2.5 ML BTL OP (07:52)
[2019-03-19 08:11] VITALS: BP 124/69; PULSE 77; RESP 19; TEMP 36.1; O2SAT 94
--- NOTE | 2019-03-19 09:27 | DSE_ITS ---
Date of service: 03/19/19 Time of Service: 09:27 DS: Diagnosis Discharge Diagnosis (1) Gross hematuria: Status: Acute (2) Clot retention of urine: Status: Acute Discharge Plan Disposition Patient Disposition: HOME Condition: Improving Discharge Details Reason For Visit: HEMATURIA Admit Date/Time: 03/17/19 15:17 Admit Provider: Rich Olmos Attending Provider: Rich Olmos Primary Care Provider: Vero Pagan V Hospital Course Hospital Course: The patient presented to the operating room on 03/17/2019. We did a cystoscopy and found a very vascular prostate and a few small clots. The clots were evacuated and we cauterized the entire prostate. We resected a very large median lobe in order to cauterize that area as well. In the postoperative time, we ran bladder irrigation for 48 hours. By postoperative day #2, the irrigant became clear. We discontinued the bladder irrigation. We plan on sending him home with a Reddy catheter in place if his urine remains transparent. If his urine darkens back-up, we will restart bladder irrigation and keep him 1 additional day. Home Meds and New Rx's Prescriptions: No Action Travatan Z 2.5 ML drops 1 drp Ophthalmic DAILY RF: 0 levofloxacin 500 mg tablet 500 mg PO DAILY Qty: 6 RF: 0 finasteride 5 MG tablet 5 mg PO DAILY Qty: 30 RF: 0 aspirin 325 mg Tablet 325 mg PO Q6H PRNRF: 0 acetaminophen [Tylenol] 325 mg Capsule 650 mg PO ONCE PRNRF: 0 epinephrine 0.3 MG/SYR auto-injector 0.3 mg IJ DIRECTED RF: 0 Discharge Instructions Additional Instructions: Reddy to leg bag - catheter plug to irrigation port F/U in office Thursday to have catheter removed If his bleeding persists or returns, our next treatment option would be a simple prostatectomy with cauterization of the prostatic capsule Activity:: no lifting over 10 pounds Equipment/Supplies:: reddy to gravity Diet:: As Tolerated Exam Narrative Exam Narrative: He is in no current distress. He is cooperative. His vital signs are documented elsewhere. His lungs are clear. Cardiac exam shows a regular rate and rhythm His abdomen is obese but soft. His catheter was hand irrigated for a few clots. The urine is still pink-tinged but is transparent. He is awake and alert. DS: Data Vitals/I&O Vitals and I&O: Vital Signs Temperature 36.1 C L 03/19/19 08:11 Temperature Source Tympanic 03/19/19 08:11 Pulse 77 03/19/19 08:11 Pulse Rhythm Regular 03/19/19 07:55 Respiratory Rate 19 03/19/19 08:11 Respiratory Effort Non-Labored 03/19/19 07:55 Respiratory Depth Normal 03/19/19 07:55 Respiratory Pattern Normal 03/19/19 07:55 Blood Pressure 124/69 03/19/19 08:11 Pulse Oximetry 94 L 03/19/19 08:11 Respiratory End-tidal CO2 33 03/17/19 15:43 Oxygen Delivery Method Room Air 03/19/19 08:11 Oxygen Flow Rate 0 03/19/19 08:11 Pain Level 0 03/19/19 08:11 Intake & Output 03/18/19 03/18/19 03/19/19 11:59 23:59 11:59 Intake Total 1916.667 / 3410.834 1494.167 / 3410.834 1181.25 / 1181.25 Balance 1916.667 / 3410.834 1494.167 / 3410.834 1181.25 / 1181.25 Intake: IV 1916.667 / 2870.834 954.167 / 2870.834 931.25 / 931.25 Oral 540 / 540 250 / 250 Other: Urine Color Bright Red Pena [place] Urine Appearance Hematuria Hematuria Clots Comment GRAVITY BAG DRAINING INTO REDDY BAG AND INTO LARGE BUCKET when pt ambulated to the commode 2 medium clots noted in line, flow was increase and clots passed into collection container. pt denies any pain or spasm no flow noted , one large clot was aspirated, irrigation in progress light pena fluid noted at this time Labs on day of discharge: Labs from last 24 hours 03/19/19 06:36 Hgb 12.5 L Hct 38.5 L PFSH Social History Smoking/Tobacco Use Status: Former Tobacco Use Alcohol Intake: never Drug use: Never Substance use type: does not use Do you feel safe at home: Yes Do you feel safe in your relationship?: Yes
--- NOTE | 2019-03-19 09:35 | DSE_ITS ---
DS: Diagnosis Discharge Diagnosis (1) Gross hematuria: Status: Acute (2) Clot retention of urine: Status: Acute Discharge Plan Disposition Patient Disposition: HOME Condition: Improving Discharge Details Reason For Visit: HEMATURIA Admit Date/Time: 03/17/19 15:17 Admit Provider: Rich Olmos Attending Provider: Rich Olmos Primary Care Provider: Vero Pagan V Hospital Course Hospital Course: The patient presented to the operating room on 03/17/2019. We did a cystoscopy and found a very vascular prostate and a few small clots. The clots were evacuated and we cauterized the entire prostate. We resected a very large median lobe in order to cauterize that area as well. In the postoperative time, we ran bladder irrigation for 48 hours. By postoperative day #2, the irrigant became clear. We discontinued the bladder irrigation. We plan on sending him home with a Reddy catheter in place if his urine remains transparent. If his urine darkens back-up, we will restart bladder irrigation and keep him 1 additional day. Home Meds and New Rx's Prescriptions: No Action Travatan Z 2.5 ML drops 1 drp Ophthalmic DAILY RF: 0 levofloxacin 500 mg tablet 500 mg PO DAILY Qty: 6 RF: 0 finasteride 5 MG tablet 5 mg PO DAILY Qty: 30 RF: 0 aspirin 325 mg Tablet 325 mg PO Q6H PRNRF: 0 acetaminophen [Tylenol] 325 mg Capsule 650 mg PO ONCE PRNRF: 0 epinephrine 0.3 MG/SYR auto-injector 0.3 mg IJ DIRECTED RF: 0 Discharge Instructions Additional Instructions: Reddy to leg bag - catheter plug to irrigation port F/U in office Thursday to have catheter removed If his bleeding persists or returns, our next treatment option would be a simple prostatectomy with cauterization of the prostatic capsule Hold aspirin scripts for Oxybutinin and Bactrim sent to pharmacy script for Tramadol printed and signed Activity:: no lifting over 10 pounds Equipment/Supplies:: reddy to gravity Diet:: As Tolerated DS: Data Vitals/I&O Vitals and I&O: Vital Signs Temperature 36.1 C L 03/19/19 08:11 Temperature Source Tympanic 03/19/19 08:11 Pulse 77 03/19/19 08:11 Pulse Rhythm Regular 03/19/19 07:55 Respiratory Rate 19 03/19/19 08:11 Respiratory Effort Non-Labored 03/19/19 07:55 Respiratory Depth Normal 03/19/19 07:55 Respiratory Pattern Normal 03/19/19 07:55 Blood Pressure 124/69 03/19/19 08:11 Pulse Oximetry 94 L 03/19/19 08:11 Respiratory End-tidal CO2 33 03/17/19 15:43 Oxygen Delivery Method Room Air 03/19/19 08:11 Oxygen Flow Rate 0 03/19/19 08:11 Pain Level 0 03/19/19 08:11 Intake & Output 03/18/19 03/18/19 03/19/19 11:59 23:59 11:59 Intake Total 1916.667 / 3410.834 1494.167 / 3410.834 1181.25 / 1181.25 Balance 1916.667 / 3410.834 1494.167 / 3410.834 1181.25 / 1181.25 Intake: IV 1916.667 / 2870.834 954.167 / 2870.834 931.25 / 931.25 Oral 540 / 540 250 / 250 Other: Urine Color Bright Red Pena [place] Urine Appearance Hematuria Hematuria Clots Comment GRAVITY BAG DRAINING INTO REDDY BAG AND INTO LARGE BUCKET when pt ambulated to the commode 2 medium clots noted in line, flow was increase and clots passed into collection container. pt denies any pain or spasm no flow noted , one large clot was aspirated, irrigation in progress light pena fluid noted at this time Labs on day of discharge: Labs from last 24 hours 03/19/19 06:36 Hgb 12.5 L Hct 38.5 L PFSH Social History Smoking/Tobacco Use Status: Former Tobacco Use Alcohol Intake: never Drug use: Never Substance use type: does not use Do you feel safe at home: Yes Do you feel safe in your relationship?: Yes
[2019-03-19] MEDS: traMADol 50 MG TAB PO (11:14)
--- NOTE | 2019-03-19 12:08 | PDOC.CMDIS ---
LACE Index Scoring Tool - Questions: Length of Stay (in days): 2 Acuity (Admit via E.D.?): No E.D. Visits: 0 - Answers: Total Score: 2 Risk of Readmission: Low Risk Care Management Discharge Reason for Hospitalization: Hematuria Discharge Plan: Dontrell will retuirn home and no services will be needed at this time. Jessika, his , will transport by car.
== END 2019-03-19 11:56 | disposition home or self-care (01) ==
LOC: MS 16:16
PROVIDERS: Admitting Provider Urology; PCP Family Medicine; Visit Provider Urology
PROC: 0TBB8ZZ Excision of Bladder, Via Natural or Artificial Opening Endoscopic (ICD-10-PCS; CPT 52601; 2019-03-17 12:00)
DX: R31.0 Gross hematuria (principal); N40.0 Benign prostatic hyperplasia without lower urinary tract symptoms; N32.89 Other specified disorders of bladder
CPT/HCPCS: 52601; 52001; 36415; 99238; NC; 85014; 85018; G0378; J0131; J0690

== ENCOUNTER → 2019-03-18 11:56 | Outpatient (BNVA) | payer MEDICARE, BC, SELFPAY | PROVIDERS: PCP Family Medicine; Visit Provider Urology | DX: R69 Illness, unspecified (principal) ==

== ENCOUNTER → 2019-03-21 10:03 | Outpatient (BNVA) | payer MEDICARE, BC, SELFPAY | PROVIDERS: PCP Family Medicine; Visit Provider Nurse Practitioner Gerontology | DX: R31.0 Gross hematuria (principal); R33.8 Other retention of urine; Z46.6 Encounter for fitting and adjustment of urinary device | CPT/HCPCS: 99213 ==

== ENCOUNTER → 2019-03-31 14:22 | Outpatient (BNVA) | payer MEDICARE, BC, SELFPAY | PROVIDERS: PCP Family Medicine; Visit Provider Nurse Practitioner Gerontology | DX: N39.0 Urinary tract infection, site not specified (principal); R31.0 Gross hematuria; R35.0 Frequency of micturition | CPT/HCPCS: 51798; 81003; 99213 ==

== ENCOUNTER 2019-03-31 16:51 | Outpatient (REF) | payer MEDICARE, BC, SELFPAY | END 2019-03-31 17:11 | LOC: NCHCN 16:51 | PROVIDERS: PCP Family Medicine; Visit Provider Nurse Practitioner Gerontology | DX: R31.0 Gross hematuria (principal); R35.0 Frequency of micturition | CPT/HCPCS: 87086 ==

== ENCOUNTER → 2019-04-05 07:59 | Outpatient (BNVA) | payer MEDICARE, BC, SELFPAY | PROVIDERS: PCP Family Medicine; Visit Provider Urology | DX: R31.0 Gross hematuria (principal) | CPT/HCPCS: 99213 ==

== ENCOUNTER 2019-05-31 01:49 | Outpatient (CLI) | payer MEDICARE, BC, SELFPAY ==
--- NOTE | 2019-05-31 12:30 | DI.CTLCSR_ITS ---
EXAM: CT CHEST LUNG CANCER SCREEN CLINICAL HISTORY: SMOKING STOPPED Z87.891, PREVENTIVE Z00.00 TECHNIQUE: The exam was performed according to the usual protocol. COMPARISON: RENAL COLIC WO CONTRAST from 05/17/2012 FINDINGS: There is atherosclerosis. The thoracic aorta is of normal caliber. The heart size is within normal limits. No pericardial effusion is seen. Coronary artery calcifications are present. No significan t thoracic adenopathy is seen on this noncontrast examination. No pleural effusion or pneumothorax i s identified. There has been interval increase in size in the cyst in the left lobe of the liver sin ce 05/17/2012. The cyst now measures 6.6 cm x 5.3 cm. This compares to 2.3 x 2.1 cm. No pulmonary nodules are present. No focal consolidating infiltrates are present. The tracheobronchial tree is u nremarkable. Scarring or atelectasis is seen in the lung bases bilaterally. There are degenerative changes seen in the spine. IMPRESSION: 1. No pulmonary nodules. 2. Interval increase in size of hepatic cyst. Follow-up with abdominal ultrasound or CT scan of the abdomen is recommended. 3. Coronary artery calcifications. 4. Lung RADS Cat 1 - Negative: No nodules and definitely benign nodules
== END 2019-05-31 02:09 ==
PROVIDERS: PCP Family Medicine; Visit Provider Family Medicine
DX: Z12.2 Encounter for screening for malignant neoplasm of respiratory organs (principal); K76.89 Other specified diseases of liver; J98.4 Other disorders of lung; Z87.891 Personal history of nicotine dependence; I25.84 Coronary atherosclerosis due to calcified coronary lesion
CPT/HCPCS: G0297

== ENCOUNTER → 2019-08-15 08:25 | Outpatient (BNVA) | payer MEDICARE, BC, SELFPAY | PROVIDERS: PCP Family Medicine; Referring Provider Family Medicine; Visit Provider Urology | DX: R31.0 Gross hematuria (principal) | CPT/HCPCS: 99213 ==

== ENCOUNTER 2020-03-22 01:36 | Outpatient (CLI) | payer MEDICARE, BC, SELFPAY ==
[2020-03-22 17:00] LABS: PSA, Diagnostic 2.9 ng/mL (0.0-6.5)
== END 2020-03-22 01:56 ==
PROVIDERS: PCP Family Medicine; Visit Provider Urology
DX: R97.20 Elevated prostate specific antigen [PSA] (principal)
CPT/HCPCS: 36415; 84153

== ENCOUNTER → 2020-03-27 08:29 | Outpatient (BNVA) | payer MEDICARE, BC, SELFPAY | PROVIDERS: PCP Family Medicine; Referring Provider Family Medicine; Visit Provider Urology | DX: R31.0 Gross hematuria (principal); R97.20 Elevated prostate specific antigen [PSA]; N40.0 Benign prostatic hyperplasia without lower urinary tract symptoms | CPT/HCPCS: 99213 ==

== ENCOUNTER 2020-12-11 14:09 | Outpatient (REF) | payer MEDICARE, BC, SELFPAY ==
[2020-12-13 21:39] LABS: Anaplasma phagocytophilum Negative (Negative); B. miyamotoi PCR Negative (Negative); Babesia divergens/MO-1 Negative (Negative); Babesia duncani Negative (Negative); Babesia microti Negative (Negative); Ehrlichia chaffeensis Negative (Negative); Ehrlichia ewingii/canis Negative (Negative); Ehrlichia muris eauclairensis Negative (Negative)
== END 2020-12-11 14:10 | disposition home or self-care (01) ==
LOC: NCHCN 14:09
PROVIDERS: PCP Family Medicine; Visit Provider Family Medicine
DX: Z11.8 Encounter for screening for other infectious and parasitic diseases (principal); R03.0 Elevated blood-pressure reading, without diagnosis of hypertension
CPT/HCPCS: 87798; 86618

== ENCOUNTER 2020-12-19 11:13 | Outpatient (REF) | payer MEDICARE, BC, SELFPAY ==
[2020-12-21 11:43] LABS: Lyme Ab w Rflx to Lyme Confirm Negative (Negative)
== END 2020-12-19 11:14 | disposition home or self-care (01) ==
LOC: NCHCN 11:13
PROVIDERS: PCP Family Medicine; Visit Provider Family Medicine
DX: T14.8XXA Other injury of unspecified body region, initial encounter (principal); W57.XXXA Bitten or stung by nonvenomous insect and other nonvenomous arthropods, initial encounter
CPT/HCPCS: 86618

== ENCOUNTER 2021-02-20 02:04 | Outpatient (CLI) | payer MEDICARE, BC, SELFPAY ==
--- NOTE | 2021-02-20 | DI.CTLCSR_ITS ---
Exam(s) CT CHEST LUNG CANCER SCREEN EXAM: CT CHEST LUNG CANCER SCREEN CLINICAL HISTORY: SCREENING FOR LUNG CA, FORMER SMOKER, [id number]. TECHNIQUE: Imaging Protocol: Low Dose Technique CONTRAST MATERIAL: None COMPARISON: CT CT CHEST LUNG CANCER SCREEN from 05/31/2019 FINDINGS: CHEST: LUNGS: There are no ominous pulmonary nodules. There are no confluent infiltrates. No pleural effusi ons. MEDIASTINUM: There is no obvious hilar nor mediastinal adenopathy. CARDIAC: Heart size is normal. There is no pericardial effusion.Caliber of the thoracic aorta is wit hin normal limits. OTHER: Large cyst in the liver is again noted. OSSEOUS: No significant osseous lesions.. IMPRESSION: 1. No new lung nodules nor pleural effusions. No infiltrates. 2. No obvious intrathoracic adenopathy. 3. Lung RADS Cat 1 - Negative: No nodules and definitely benign nodules Lung-RADS 1.0 CATEGORIES: Category 0 - Prior chest CT exam(s) being located for comparison. Category 1 - Annual screening in 12 months. No nodules or definitely benign nodules. Category 2 - Annual screening in 12 months. Benign appearance. Nodules with low likelihood of becomin g active cancer. Category 3 - 6-month follow-up. Probably benign. Short-term follow-up suggested. Nodules with low lik elihood of becoming active cancer. Category 4A - 3-month follow-up and CT/PET if >8 mm in size. Suspicious finding. Findings which requi re additional testing. Category 4B - Findings which require additional testing and tissue sampling. Modifier S- Potentially clinically significant findings (non lung cancer) RADIATION DOSE DELIVERED: 95.31mGy.cm Total DLP 2.21mGy CTDIvol DATA REPOSITORY: All CT scans at this facility are submitted to the National Radiology Data Registry (NRDR) Dose Index Registry (DIR) with the [employer] ([employer]). RADIATION OPTIMIZATION: All CT scans at this facility use at least one of these dose optimization te chniques: automated exposure control; mA and/or kV adjustment per patient size (includes targeted exa ms where dose is matched to clinical indication); or iterative reconstruction.
== END 2021-02-20 02:24 ==
PROVIDERS: PCP Family Medicine; Visit Provider Family Medicine
DX: Z12.2 Encounter for screening for malignant neoplasm of respiratory organs (principal); Z87.891 Personal history of nicotine dependence
CPT/HCPCS: 71271

== ENCOUNTER 2021-05-15 04:12 | Outpatient (CLI) | payer MEDICARE, BC, SELFPAY ==
[2021-05-15 17:07] LABS: PSA, Diagnostic 2.6 ng/mL (0.0-6.5)
== END 2021-05-15 04:13 | disposition home or self-care (01) ==
LOC: LBO 04:12
PROVIDERS: PCP Family Medicine; Visit Provider Urology
DX: R97.20 Elevated prostate specific antigen [PSA]; R31.0 Gross hematuria
CPT/HCPCS: 36415; 84153

== ENCOUNTER → 2021-05-21 14:21 | Outpatient (BNVA) | payer MEDICARE, BC, SELFPAY | PROVIDERS: PCP Family Medicine; Referring Provider Family Medicine; Visit Provider Urology | DX: R31.0 Gross hematuria (principal); Z79.899 Other long term (current) drug therapy | CPT/HCPCS: 99213 ==

== ENCOUNTER 2021-12-06 14:13 | Emergency (ER) | payer MEDICARE, SELFPAY ==
[2021-12-06 14:18] VITALS: BP 176/88; PULSE 80; RESP 18; TEMP 36.2; O2SAT 96
--- NOTE | 2021-12-06 15:27 | ED.GENADUL_ITS ---
Discharge Plan Disposition Patient Disposition: HOME Condition: Stable Discharge Details Clinical Impression: Ureterolithiasis Primary Care Provider: Vero Pagan V ED Provider: Lou Randolph Home Meds and New Rx's Prescriptions: New tamsulosin [Flomax] 0.4 mg capsule 0.4 mg PO DAILY Qty: 5 0RF oxycodone 5 mg capsule 5 mg PO Q8H PRNQty: 10 0RF Continued finasteride 5 mg tablet 5 mg PO DAILY Qty: 90 4RF travoprost [Travatan Z] 2.5 ML drops 1 drp Ophthalmic DAILY 0RF aspirin 325 mg Tablet 325 mg PO Q6H PRN0RF acetaminophen [Tylenol] 325 mg Capsule 650 mg PO ONCE PRN0RF epinephrine 0.3 MG/SYR auto-injector 0.3 mg IJ DIRECTED 0RF Label Comments: pt. denies using and states he does not really know why he has it, reports itching and ER visit that resulted in pen No Action oxycodone 5 mg capsule 5 mg PO Q6H PRNQty: 10 0RF tamsulosin [Flomax] 0.4 mg capsule 0.4 mg PO DAILY Qty: 5 0RF Discharge Instructions Instructions: Back Pain (ED) Additional Instructions: Take ibuprofen 400 mg every 8 hours with food as needed for pain Take the Valium, take 1/2 tablet every 8 hours as needed, you may take the second half of the tablet if your pain is uncontrolled an hour after taking first tablet You may also take an oxycodone, please do not take these within 4 hours of each other Both medications are addictive and can make you drowsy, use them sparingly Use the Lidoderm patches as needed, 12 hours on, 12 hours off over the area that is affected and return immediately should you have worsening pain, strength or sensation change, numbness or tingling, or with any new or worsening complaints Referrals: Vero Pagan MD [Primary Care Provider] - Rich Olmos MD [ [facility] STAFF PHYSICIAN] - Discharge Data Discharge Date/Time-TO BE ENTERED AT DEPARTURE: 12/06/21 16:02 Medical Decision Making Patient reports history of similar back pain in the past States he has not attempted any [id number] medications, has reproducible pain over the sacroiliac joint, he has no CVA tenderness on assessment, he denies any hematuria or urinary symptoms He has no signs or symptoms of cauda equina syndrome and is afebrile and nontoxic He is given a prescription for oxycodone and Valium for suspected musculoskeletal back pain and given low threshold to return should he have new or worsening complaints Recheck with primary care physician on Thursday recommended Medical Records Medical records reviewed: Yes I reviewed the patient's medical records. Lab Data Lab results reviewed: Yes I reviewed the patient's lab results. ECG Data Prior ECG tracings: available for review HPI General Date/Time Provider Initiated Documentation: 12/06/21 14:39 . HPI Narrative: This 75-year-old gentleman presents with right-sided low back and flank pain. He presents status post evaluation in the emergency department yesterday. She was evaluated for his reported acute exacerbation of chronic back pain. He presents today secondary to intermittent back pain that is not alleviated with the Valium that he was previously prescribed. He denies any changes in bowel or bladder, strength or sensation changes to extremities. He states the pain is now radiating into his groin. He denies any urinary incontinence or retention. He denies any fever or chills or history of illicit drug use. He denies any associated abdominal discomfort. He denies any fever or chills. He states the pain is exacerbated with walking. Related Data Home Medications Medication Instructions Recorded Confirmed travoprost 0.004 % eye drops 1 drp OPHTHALMIC DAILY drp 08/28/15 12/07/21 (Travatan Z) epinephrine 0.3 mg/0.3 mL 0.3 mg IJ DIRECTED 06/12/17 12/07/21 injection, auto-injector acetaminophen 325 mg capsule 650 mg PO ONCE PRN 03/17/19 12/07/21 (Tylenol) aspirin 325 mg tablet 325 mg PO Q6H PRN 03/17/19 12/07/21 finasteride 5 mg tablet 5 mg PO DAILY #90 tab 05/21/21 12/07/21 oxycodone 5 mg capsule 5 mg PO Q6H PRN #10 cap 12/07/21 oxycodone 5 mg capsule 5 mg PO Q8H PRN #10 cap 12/07/21 tamsulosin 0.4 mg capsule (Flomax) 0.4 mg PO DAILY #5 cap 12/07/21 tamsulosin 0.4 mg capsule (Flomax) 0.4 mg PO DAILY #5 cap 12/07/21 Previous Rx's Medication Instructions Recorded finasteride 5 mg tablet 5 mg PO DAILY #90 tab 05/21/21 oxycodone 5 mg capsule 5 mg PO Q6H PRN #10 cap 12/07/21 oxycodone 5 mg capsule 5 mg PO Q8H PRN #10 cap 12/07/21 tamsulosin 0.4 mg capsule (Flomax) 0.4 mg PO DAILY #5 cap 12/07/21 tamsulosin 0.4 mg capsule (Flomax) 0.4 mg PO DAILY #5 cap 12/07/21 Allergies Allergy/AdvReac Type Severity Reaction Status Date / Time amoxicillin [Amoxicillin] AdvReac Severe Gastric Unverified 12/07/21 09:03 distress, bleeding General Stated Complaint: Nk/Back Pain ILA: 3 Review of Systems All systems reviewed & are unremarkable except as noted in HPI and below PFSH All Active Problems (Updated 12/07/21 @ 13:01 by ARJUN Patton) Ureterolithiasis (Acute) Gross hematuria (Acute) Clot retention of urine (Acute) Medical History (Updated 12/07/21 @ 13:01 by ARJUN Patton) BPH (benign prostatic hyperplasia) Elevated PSA Surgical History H/O cystoscopy S/P appendectomy S/P hernia repair Social History Smoking/Tobacco Use Status: Former Tobacco Use Smoking risk assessment performed?: Yes Alcohol Intake: never Drug use: Never Substance use type: does not use Do you feel safe at home: Yes Do you feel safe in your relationship?: Yes Exam Const General: cooperative, comfortable and no acute distress HENMT Head: normal to inspection Eyes Pupils: PERRL Resp Effort & Inspection: normal respiratory effort Auscultation: clear to auscultation bilaterally Cardio Rate: regular rate Rhythm: regular rhythm Other: Distal pulses intact GI Inspection: normal to inspection Other: No abdominal bruit or pulsatile mass Back/Spine/Pelvis Back: no CVA tenderness Other: Palpable SI joint pain Skin General skin exam: no rashes or lesions noted Neuro General: patient alert and patient oriented x3 Cranial Nerves: CN's II-XI intact bilaterally Cognition: normal cognition Speech: speech normal Gait: normal gait Other: Negative Babinski, negative straight leg raise bilaterally, DTRs intact bilateral lower extremities, strength and sensation intact distally Extrem Other: Distal pulses intact gait Psych Appearance: grossly normal Course Vital Signs Vital signs: Vital Signs Temperature 36.2 C L 12/06/21 14:18 Pulse 80 12/06/21 14:18 Respiratory Rate 18 12/06/21 14:18 Blood Pressure 176/88 H 12/06/21 14:18 Pulse Oximetry 96 12/06/21 14:18 Temperature 36.2 C L 12/06/21 14:18 Temperature Source Tympanic 12/06/21 14:18 Pulse 80 12/06/21 14:18 Respiratory Rate 18 12/06/21 14:18 Respiratory Effort 12/06/21 14:32 Blood Pressure 176/88 H 12/06/21 14:18 Blood Pressure Position Sitting 12/06/21 14:18 Pulse Oximetry 96 12/06/21 14:18 Oxygen Delivery Method Room Air 12/06/21 14:18 Oxygen Flow Rate 0 12/06/21 14:18 Pain Level 6 12/06/21 14:18
[2021-12-06] MEDS: Lidocaine 5% Patch 1 PATCH TP (15:37)
[2021-12-06] MEDS: diazePAM 2 MG TAB PO (15:37)
[2021-12-06 16:01] VITALS: BP 166/80; PULSE 77; RESP 18; TEMP 36.6; O2SAT 96
== END 2021-12-06 16:02 | disposition home or self-care (01) ==
PROVIDERS: Emergency Provider Physician Assistant; PCP Family Medicine
DX: N13.2 Hydronephrosis with renal and ureteral calculous obstruction (principal)
CPT/HCPCS: 36415; 96361; 96374; 96375; 99284

== ENCOUNTER 2021-12-07 08:47 | Emergency (ER) | payer MEDICARE, SELFPAY ==
--- NOTE | 2021-12-07 08:45 | DI.CT_ITS ---
Exam(s) CT ABDOMEN PELVIS WO EXAM: CT ABDOMEN PELVIS WO INDICATION: pain lumbar spine and right flank. COMPARISON: CT RENAL COLIC WO CONTRAST from 05/17/[address] CHEST LUNG CANCER SCREEN from 02/20/2021 TECHNIQUE: CT examination was performed without contrast administration. FINDINGS: Images obtained through the lung bases are unremarkable. Note is made of coronary artery calcification. Visualized portions of the liver and spleen appear in tact except for an apparent 6 cm in diameter left lobe hepatic cyst and a number of smaller low-atten uation hepatic lesions too small to characterize but likely cysts. The pancreas has an unremarkable appearance.. Gallbladder and bile ducts are CT normal. Abdominal aorta is of normal diameter. No significant abdominal wall hernia. No significant abdominal or pelvic adenopathy. Adrenals appear normal bilaterally. Left kidney is unremarkable in appearance with no hydronephrosis or nephrolithiasis. No left uretero lithiasis. Right kidney is mildly enlarged and there is marked perinephric fat stranding and right hydronephrosi s. There is an obstructing 4 millimeter in diameter ureteropelvic junction stone on the right. . No additional ureteral calcifications identified on the right. Urinary bladder is under distended bu t grossly unremarkable.. IMPRESSION: Obstructing 4 millimeter in diameter right ureteropelvic junction calculus as described above.. RADIATION DOSE DELIVERED: DLP Total DLP !Error CTDIvol RADIATION OPTIMIZATION: All CT scans at this facility use at least one of these dose optimization te chniques: automated exposure control; mA and/or kV adjustment per patient size (includes targeted exa ms where dose is matched to clinical indication); or iterative reconstruction.
--- NOTE | 2021-12-07 08:51 | DI.CT_ITS ---
Exam(s) CT LUMBAR SPINE RECONS EXAM: CT LUMBAR SPINE RECONS CLINICAL HISTORY: lumbar spine TECHNIQUE: COMPARISON: CT CT CHEST LUNG CANCER SCREEN from 02/20/[address] ABDOMEN PELVIS WO from 12/07/2021 FINDINGS: Lumbar spine reconstructions were obtained from today's abdominal and pelvic CT. There are moderate degenerative changes of the lumbar spine. There is multilevel disc space loss of height and vacuum d isc phenomenon consistent with disc degeneration. There is no evidence of acute fracture or dislocat ion. Slight loss of height anteriorly of T12 and L1 vertebral bodies noted which appear to represent chronic changes. No gross interval change appearance comparison with prior examination of January 2021 . No gross erosive or destructive lesion seen. Note is again made of UPJ obstructing stone on the right as noted on today's abdominal CT. IMPRESSION: Stable L1 and T12 vertebral body compression fractures. No evidence of acute process. RADIATION DOSE DELIVERED: 1668.36 mGy.cm Total DLP !Error CTDIvol RADIATION OPTIMIZATION: All CT scans at this facility use at least one of these dose optimization te chniques: automated exposure control; mA and/or kV adjustment per patient size (includes targeted exa ms where dose is matched to clinical indication); or iterative reconstruction.
[2021-12-07 08:54] VITALS: BP 170/88; PULSE 79; RESP 16; TEMP 36.7; O2SAT 96
[2021-12-07 08:56] VITALS: BP 170/88; PULSE 82; RESP 16; TEMP 36.7; O2SAT 96
[2021-12-07] MEDS: Orphenadrine 60 MG/2 ML VIAL IVP (09:56)
[2021-12-07] MEDS: Ketorolac 15 MG/ML VIAL IVP (09:56)
[2021-12-07 10:01] LABS: Abs Immature Grans 0.02 10^3/uL (0.0-0.06); Absolute Basophil Count 0.06 10^3/uL (0.0-0.2); Absolute Eosinophil Count 0.06 10^3/uL (0.0-0.7); Absolute Lymphocyte Count 1.35 10^3/uL (1.2-3.4); Absolute Monocyte Count 0.76 10^3/uL (0.1-0.8); Absolute Neutrophil Count 8.01 10^3/uL (1.2-6.7); Basophils % 0.6; Eosinophils % 0.6; HCT 51.2 % (40.0-50.0); HGB 16.7 g/dL (13.5-17.5); Immature Grans % 0.2; Lymphocytes % 13.2; MCH 29.5 pg (27.0-33.0); MCHC 32.6 % (32.0-36.0); MCV 90 fL (80-95); Monocytes % 7.4; Platelet Count 219 10^3/uL (130-400); RBC 5.67 10^6/uL (4.36-5.78); RDW 13.5 % (11.8-14.1); RDW-SD 44.7 fL; WBC 10.26 10^3/uL (4.4-10.8)
[2021-12-07 10:14] LABS: ALT 22 U/L (16-63); AST 22 U/L (15-37); Albumin 3.5 g/dL (3.4-5.0); Alkaline Phosphatase 105 U/L (46-116); BUN 12 mg/dL (7-18); Bilirubin, Total 1.1 mg/dL (0.2-1.0); CREATININE 1.3 mg/dL (0.70-1.30); Calcium 8.4 mg/dL (8.5-10.1); Chloride 104 mmol/L (98-107); Estimated GFR 53.96 (mL/min/1.73m2); Glucose 106 mg/dL (74-106); Potassium 3.7 mmol/L (3.5-5.1); Sodium 139 mmol/L (136-145); Total Protein 7.1 g/dL (6.4-8.2)
[2021-12-07 10:54] VITALS: BP 172/71; PULSE 88; RESP 18; O2SAT 96
--- NOTE | 2021-12-07 11:01 | DI.VRAD_ITS ---
Cyst PROCEDURE INFORMATION: Exam: CT Lumbar Spine Without Contrast Exam date and time: 12/07/2021 10:04 AM Age: 75 years old Clinical indication: Low back pain TECHNIQUE: Imaging protocol: Computed tomography images of the lumbar spine without contrast. Radiation optimization: All CT scans at this facility use at least one of these dose optimization techniques: automated exposure control; mA and/or kV adjustment per patient size (includes targeted exams where dose is matched to clinical indication); or iterative reconstruction. COMPARISON: US renal 03/16/2019 11:30 AM FINDINGS: Vertebrae: There is a stable compression fracture involving the superior endplate of L1. Less than 25% loss of height. Discs/Spinal canal/Neural foramina: Intervertebral disc space narrowing and vacuum disc phenomenon L4-5 and L5-S1. Multilevel hypertrophic facet arthropathy. The no evidence of severe central canal or foraminal stenosis. Kidneys and ureters: The right kidney is enlarged with perinephric fat stranding. There is mild to moderate right-sided hydronephrosis and proximal hydroureter related to a 3 mm stone within the proximal right ureter. Reproductive: Prostatomegaly. Vasculature: Abdominal aortic atherosclerotic plaque. Soft tissues: Unremarkable. IMPRESSION: 1. Multilevel degenerative changes within the lumbar spine. 2. Stable L1 compression fracture, less than 25% loss of height. 3. 3 mm stone within the right ureter, with associated right-sided hydronephrosis and hydroureter. Dictated and Authenticated by: Ry Stack MD. Ordering:LYNNE Blake MD
--- NOTE | 2021-12-07 11:14 | DI.VRAD_ITS ---
. PROCEDURE INFORMATION: Exam: CT Abdomen And Pelvis Without Contrast Exam date and time: 12/07/2021 10:04 AM Age: 75 years old Clinical indication: Other: RT flank pain and lbp TECHNIQUE: Imaging protocol: Computed tomography of the abdomen and pelvis without contrast. Radiation optimization: All CT scans at this facility use at least one of these dose optimization techniques: automated exposure control; mA and/or kV adjustment per patient size (includes targeted exams where dose is matched to clinical indication); or iterative reconstruction. COMPARISON: CT CHEST LUNG CANCER SCREEN 02/20/2021 8:26 AM FINDINGS: Liver: Simple hepatic cysts. Gallbladder and bile ducts: Normal. No calcified stones. No ductal dilation. Pancreas: Normal. No ductal dilation. Spleen: Normal. No splenomegaly. Adrenal glands: Normal. No mass. Kidneys and ureters: There is evidence of right renal enlargement and perinephric fat stranding as well as mild to moderate right-sided hydronephrosis. There is proximal hydroureter with a 4 mm stone within the proximal right ureter with periureteral fat stranding. The left kidney is unremarkable. Stomach and bowel: Unremarkable. No obstruction. No mucosal thickening. Appendix: The appendix is not well visualized, however no inflammatory changes are noted within the right lower quadrant. Intraperitoneal space: Unremarkable. No free air. No significant fluid collection. Vasculature: Abdominal aortic atherosclerotic plaque. Lymph nodes: Unremarkable. No enlarged lymph nodes. Urinary bladder: Unremarkable as visualized. Reproductive: Prostatomegaly. Bones/joints: Unremarkable. No acute fracture. Soft tissues: Unremarkable. IMPRESSION: 1. 4 mm stone within the proximal right ureter, with right-sided hydronephrosis and hydroureter. 2. Incidental findings as above Dictated and Authenticated by: Ry Stack MD. Ordering:LYNNE Blake MD
[2021-12-07] MEDS: Normal Saline 1,000 ML 1000 ML IV (11:26)
[2021-12-07 12:49] LABS: Bilirubin Negative (Negative); Blood Large (Negative); Clarity Clear (Clear); Glucose Negative (Negative); Ketones 15 mg/dL (Negative); Leukocyte Esterase Negative (Negative); Nitrite Negative (Negative); Specific Gravity >= 1.030 (1.005-1.025)
[2021-12-07 12:57] LABS: Bacteria Negative HPF (Negative); C & S Indicated? No; Casts Negative LPF (Negative); Crystals Negative HPF (Negative); Epithelial Cells Moderate HPF (Negative); Mucus Moderate (Negative); RBC 20-50 HPF (0-2)
[2021-12-07 13:37] VITALS: BP 167/90; PULSE 78; RESP 16; O2SAT 97
--- NOTE | 2021-12-07 14:59 | ED.GENADUL_ITS ---
Discharge Plan Disposition Patient Disposition: HOME Condition: Stable Discharge Details Clinical Impression: Ureterolithiasis Primary Care Provider: Vero Pagan V ED Provider: Lou Randolph Home Meds and New Rx's Prescriptions: New oxycodone 5 mg capsule 5 mg PO Q6H PRNQty: 10 0RF tamsulosin [Flomax] 0.4 mg capsule 0.4 mg PO DAILY Qty: 5 0RF Continued finasteride 5 mg tablet 5 mg PO DAILY Qty: 90 4RF travoprost [Travatan Z] 2.5 ML drops 1 drp Ophthalmic DAILY 0RF aspirin 325 mg Tablet 325 mg PO Q6H PRN0RF acetaminophen [Tylenol] 325 mg Capsule 650 mg PO ONCE PRN0RF tamsulosin [Flomax] 0.4 mg capsule 0.4 mg PO DAILY Qty: 5 0RF oxycodone 5 mg capsule 5 mg PO Q8H PRNQty: 10 0RF epinephrine 0.3 MG/SYR auto-injector 0.3 mg IJ DIRECTED 0RF Label Comments: pt. denies using and states he does not really know why he has it, reports itching and ER visit that resulted in pen Discontinued diazepam [Valium] 5 mg tablet 5 mg PO BID-TID PRNQty: 7 0RF lidocaine [Lidoderm] 5 % adhesive patch,medicated 1 patch topical DAILY Qty: 15 0RF Rx Instructions: leave on most painful area for up to 12 hrs Discharge Data Discharge Date/Time-TO BE ENTERED AT DEPARTURE: 12/07/21 14:38 Medical Decision Making Patient appears well, he is been resting comfortably since receiving Toradol He is able to provide a urine specimen There is no evidence of secondary infection in his urine He does have blood with a ureterolith I noted on his proximal right ureter, he has mild hydronephrosis His labs are reassuring He is given referral to urology and placed on oxycodone and Flomax Medical Records Medical records reviewed: Yes I reviewed the patient's medical records. Lab Data Lab results reviewed: Yes I reviewed the patient's lab results. HPI General Date/Time Provider Initiated Documentation: 12/07/21 08:51 . HPI Narrative: This 75-year-old male with past history of back pain presents with report of persistent right flank pain. He was evaluated in the emergency department yesterday. He denies any fever or chills. He states the pain is persistent and worsening. He tried taking a Valium without alleviation of the pain. The pain is reportedly intermittent. He denies any known exacerbating or alleviating today. Denies any cough or shortness of breath. Denies any gross hematuria. States the pain radiates into his groin. Related Data Home Medications Medication Instructions Recorded Confirmed travoprost 0.004 % eye drops 1 drp OPHTHALMIC DAILY drp 08/28/15 12/07/21 (Travatan Z) epinephrine 0.3 mg/0.3 mL 0.3 mg IJ DIRECTED 06/12/17 12/07/21 injection, auto-injector acetaminophen 325 mg capsule 650 mg PO ONCE PRN 03/17/19 12/07/21 (Tylenol) aspirin 325 mg tablet 325 mg PO Q6H PRN 03/17/19 12/07/21 finasteride 5 mg tablet 5 mg PO DAILY #90 tab 05/21/21 12/07/21 oxycodone 5 mg capsule 5 mg PO Q6H PRN #10 cap 12/07/21 oxycodone 5 mg capsule 5 mg PO Q8H PRN #10 cap 12/07/21 tamsulosin 0.4 mg capsule (Flomax) 0.4 mg PO DAILY #5 cap 12/07/21 tamsulosin 0.4 mg capsule (Flomax) 0.4 mg PO DAILY #5 cap 12/07/21 Previous Rx's Medication Instructions Recorded finasteride 5 mg tablet 5 mg PO DAILY #90 tab 05/21/21 oxycodone 5 mg capsule 5 mg PO Q6H PRN #10 cap 12/07/21 oxycodone 5 mg capsule 5 mg PO Q8H PRN #10 cap 12/07/21 tamsulosin 0.4 mg capsule (Flomax) 0.4 mg PO DAILY #5 cap 12/07/21 tamsulosin 0.4 mg capsule (Flomax) 0.4 mg PO DAILY #5 cap 12/07/21 Allergies Allergy/AdvReac Type Severity Reaction Status Date / Time amoxicillin [Amoxicillin] AdvReac Severe Gastric Unverified 12/07/21 09:03 distress, bleeding General Stated Complaint: Orthopedic ILA: 3 Review of Systems All systems reviewed & are unremarkable except as noted in HPI and below PFSH All Active Problems (Updated 12/08/21 @ 08:44 by ARJUN Patton) Ureterolithiasis (Acute) Gross hematuria (Acute) Clot retention of urine (Acute) Medical History (Updated 12/08/21 @ 08:44 by ARJUN Patton) BPH (benign prostatic hyperplasia) Elevated PSA Surgical History H/O cystoscopy S/P appendectomy S/P hernia repair Social History Smoking/Tobacco Use Status: Former Tobacco Use Smoking risk assessment performed?: Yes Alcohol Intake: never Drug use: Never Substance use type: does not use Do you feel safe at home: Yes Do you feel safe in your relationship?: Yes Exam Const General: cooperative, comfortable and no acute distress Orientation: alert and oriented x3 Eyes Pupils: PERRL Resp Effort & Inspection: normal respiratory effort Auscultation: clear to auscultation bilaterally Cardio Rate: regular rate Rhythm: regular rhythm GI Inspection: normal to inspection Auscultation: normal bowel sounds Other: mild right cva tenderness no abdominal bruit or pulsatile mass Skin General skin exam: no rashes or lesions noted Neuro General: patient alert and patient oriented x3 Extrem Other: distal pulses intact Course Vital Signs Vital signs: Vital Signs Temperature 36.7 C 12/07/21 08:54 Pulse 79 12/07/21 08:54 Respiratory Rate 16 12/07/21 08:54 Blood Pressure 170/88 H 12/07/21 08:54 Pulse Oximetry 96 12/07/21 08:54 Temperature 36.7 C 12/07/21 08:56 Temperature Source Temporal Artery Scan 12/07/21 08:56 Pulse 78 12/07/21 13:37 Respiratory Rate 16 12/07/21 13:37 Respiratory Effort Non-Labored 12/07/21 09:01 Blood Pressure 167/90 H 12/07/21 13:37 Blood Pressure Position Supine 12/07/21 08:56 Pulse Oximetry 97 12/07/21 13:37 Oxygen Delivery Method Room Air 12/07/21 10:54 Oxygen Flow Rate 0 12/07/21 10:54 Pain Level 4 12/07/21 13:37 Lab/Test Results Lab/Test Results: Laboratory Tests Range/Units 12/07/21 12/07/21 12/07/21 09:47 09:47 11:45 WBC (4.4-10.8) 10^3/uL 10.26 RBC (4.36-5.78) 10^6/uL 5.67 Hgb (13.5-17.5) g/dL 16.7 Hct (40.0-50.0) % 51.2 H MCV (80-95) fL 90 MCH (27.0-33.0) pg 29.5 MCHC (32.0-36.0) % 32.6 RDW (11.8-14.1) % 13.5 Plt Count (130-400) 10^3/uL 219 MPV (8.0-11.0) fL 10.0 Immature Gran % 0.2 Neutrophils % 78.0 Lymphocytes % 13.2 Monocytes % 7.4 Eosinophils % 0.6 Basophils % 0.6 Nucleated RBC % (0.0-0.3) % 0.0 Absolute Neutrophils (1.2-6.7) 10^3/uL 8.01 H Absolute Lymphocytes (1.2-3.4) 10^3/uL 1.35 Absolute Monocytes (0.1-0.8) 10^3/uL 0.76 Absolute Eosinophils (0.0-0.7) 10^3/uL 0.06 Absolute Basophils (0.0-0.2) 10^3/uL 0.06 Sodium (136-145) mmol/L 139 Potassium (3.5-5.1) mmol/L 3.7 Chloride (98-107) mmol/L 104 Carbon Dioxide (21.0-32.0) mmol/L 29.0 Anion Gap (3-11) mmol/L 6.0 BUN (7-18) mg/dL 12 Creatinine (0.70-1.30) mg/dL 1.3 Estimated GFR/1.73 m2 (mL/min/1.73m2) 53.96 Glucose (74-106) mg/dL 106 Calcium (8.5-10.1) mg/dL 8.4 L Total Bilirubin (0.2-1.0) mg/dL 1.1 H AST (15-37) U/L 22 ALT (16-63) U/L 22 Alkaline Phosphatase (46-116) U/L 105 Total Protein (6.4-8.2) g/dL 7.1 Albumin (3.4-5.0) g/dL 3.5 Urine Color (Yellow) Yellow Urine Clarity (Clear) Clear Urine pH (5-8) 6.0 Ur Specific [place] (1.005-1.025) >= 1.030 H Urine Protein (Negative) mg/dL Negative Urine Ketones (Negative) mg/dL 15 H Urine Blood (Negative) Large H Urine Nitrite (Negative) Negative Urine Bilirubin (Negative) Negative Urine Urobilinogen (Up TO 0.2) EU/dL 1.0 H Ur Leukocyte Esterase (Negative) Negative Urine RBC (0-2) HPF 20-50 H Urine WBC (0-5) HPF 3-5 Ur Epithelial Cells (Negative) HPF Moderate Urine Crystals (Negative) HPF Negative Urine Bacteria (Negative) HPF Negative Urine Casts (Negative) LPF Negative Urine Mucus (Negative) Moderate Ur Culture Indicated? No Urine Glucose (Negative) mg/dL Negative
--- NOTE | 2021-12-07 16:03 | NUR.NOTE ---
Lou Gonzalez requesting Urology consultation with Dr. Olmos, request faxed. KARLA
== END 2021-12-07 14:38 | disposition home or self-care (01) ==
PROVIDERS: Emergency Provider Physician Assistant; PCP Family Medicine
DX: N13.2 Hydronephrosis with renal and ureteral calculous obstruction (principal)
CPT/HCPCS: 36415; 80053; 96361; 96374; 96375; 99284; J2360; 74176; 81003; 81015; 85025; J1885

== ENCOUNTER → 2021-12-24 08:21 | Outpatient (BNVA) | payer MEDICARE, SELFPAY | PROVIDERS: PCP Family Medicine; Referring Provider Family Medicine; Visit Provider Nurse Practitioner Gerontology | DX: N20.1 Calculus of ureter (principal) | CPT/HCPCS: 99214 ==

== ENCOUNTER → 2022-02-04 01:08 | Outpatient (CLI) | payer MEDICARE, SELFPAY ==
--- NOTE | 2022-02-04 07:00 | DI.US_ITS ---
Exam(s) US RENAL EXAM: US RENAL CLINICAL HISTORY: ? hydro from 4mm UPJ stone,ureterolithiasis,n20.1. TECHNIQUE: [place]var[place] scale, color and spectral Doppler were used. COMPARISON: CT CT LUMBAR SPINE RECONS from 12/07/[address] ABDOMEN PELVIS WO from 12/07/2021 FINDINGS: Renal size in cm: Right: 13.7 left: 12.4 Echogenicity: Normal Hydronephrosis: No Cyst or mass: No Nephrolithiasis: No Bladder:Normal Prevoid vol:46 cc Postvoid vol:Not performed. Prostate volume 49 cc IMPRESSION: No evidence of hydronephrosis. Enlarged prostate DATA REPOSITORY:
== END ==
PROVIDERS: PCP Family Medicine; Visit Provider Nurse Practitioner Gerontology
DX: N20.1 Calculus of ureter (principal); N40.0 Benign prostatic hyperplasia without lower urinary tract symptoms
CPT/HCPCS: 76770

== ENCOUNTER → 2022-05-23 14:22 | Outpatient (BNVA) | payer MEDICARE, SELFPAY | PROVIDERS: PCP Family Medicine; Referring Provider Family Medicine; Visit Provider Urology | DX: R35.1 Nocturia (principal); N20.1 Calculus of ureter | CPT/HCPCS: 99213 ==

== ENCOUNTER → 2022-07-01 02:23 | Outpatient (CLI) | payer MEDICARE, SELFPAY ==
--- NOTE | 2022-07-01 | DI.CTLCSR_ITS ---
Exam(s) CT CHEST LUNG CANCER SCREEN EXAM: CT CHEST LUNG CANCER SCREEN CLINICAL HISTORY: [facility] Z00.00 HX SMOKER Z87.891 SCREENING FOR LUNG CANCER TECHNIQUE: Imaging Protocol: Axial computed tomography images with coronal and sagittal reformatted images were created and reviewed COMPARISON: CT RENAL COLIC WO CONTRAST from 05/17/[address] CHEST LUNG CANCER SCREEN from 02/20/[address] LUMBAR SPINE RECONS from 12/07/[address] ABDOMEN PELVIS WO from 12/07/2021 FINDINGS: Tracheobronchial tree: Patent where visualized. Pulmonary parenchyma: No focal consolidation. Linear scarring or atelectasis seen is seen in the amada g bases. Lung Nodules: None. Mediastinum and Patricia: No dominant adenopathy or fluid collection. The esophagus is unremarkable. Thyroid gland: Unremarkable. Lymph nodes: Unremarkable. Pleura: No effusion or pneumothorax. Heart: The heart is not dilated. Mild coronary artery calcification is present. No pericardial effus ion. Aorta: Thoracic aorta non-dilated.Atherosclerosis is present. Upper abdomen: There is again seen a 6 cm hepatic cyst. Soft Tissues: Unremarkable. Bones: Within normal limits. IMPRESSION: No pulmonary nodules. Lung RADS Cat 1 - Negative: No nodules and definitely benign nodules Lung-RADS 1.0 CATEGORIES: Category 0 - Prior chest CT exam(s) being located for comparison. Category 1 - Annual screening in 12 months. No nodules or definitely benign nodules. Category 2 - Annual screening in 12 months. Benign appearance. Nodules with low likelihood of becomin g active cancer. Category 3 - 6-month follow-up. Probably benign. Short-term follow-up suggested. Nodules with low lik elihood of becoming active cancer. Category 4A - 3-month follow-up and CT/PET if >8 mm in size. Suspicious finding. Findings which requi re additional testing. Category 4B - Findings which require additional testing and tissue sampling. Suspicious finding. Category 4X - Category 3 or 4 nodules with additional features or imaging findings that increases the suspicion of malignancy. Modifier S- Potentially clinically significant finding. (Non lung cancer) RADIATION DOSE DELIVERED: 100.51mGy.cm Total DLP 2.21mGy!Error CTDIvol 100.51mGy.cmTotal DLP 2.21mGy!Error CTDIvol DATA REPOSITORY: All CT scans at this facility are submitted to the National Radiology Data Registry (NRDR) Dose Index Registry (DIR) with the [employer] ([employer]). RADIATION OPTIMIZATION: All CT scans at this facility use at least one of these dose optimization te chniques: automated exposure control; mA and/or kV adjustment per patient size (includes targeted exa ms where dose is matched to clinical indication); or iterative reconstruction.
== END ==
PROVIDERS: PCP Family Medicine; Visit Provider Family Medicine
DX: Z87.891 Personal history of nicotine dependence (principal); Z12.2 Encounter for screening for malignant neoplasm of respiratory organs
CPT/HCPCS: 71271

== ENCOUNTER → 2023-07-10 10:06 | Outpatient (BNVA) | payer MEDICARE, SELFPAY | PROVIDERS: PCP Family Medicine; Visit Provider Urology | DX: R97.20 Elevated prostate specific antigen [PSA] (principal); R39.89 Other symptoms and signs involving the genitourinary system | CPT/HCPCS: 99213 ==

== ENCOUNTER → 2024-10-18 14:01 | Outpatient (BNVA) | payer MEDICARE, SELFPAY | PROVIDERS: PCP Family Medicine; Visit Provider Urology | DX: N40.1 Benign prostatic hyperplasia with lower urinary tract symptoms (principal); R35.1 Nocturia | CPT/HCPCS: 99214 ==

== ENCOUNTER 2025-02-23 13:29 | Emergency (ER) | payer MEDICARE, SELFPAY ==
[2025-02-23 13:30] VITALS: BP 153/85; PULSE 100; RESP 16; TEMP 35.9; O2SAT 93
--- NOTE | 2025-02-23 13:32 | W.ED.GENAD ---
Discharge Plan Disposition Patient Disposition: Home Discharge Details Clinical Impression: Nasal discomfort Primary Care Provider: Vero Pagan V ED Provider: Dontrell Ruiz Home Meds and New Rx's Prescriptions: Continued tamsulosin 0.4 mg capsule See Rx Instructions .ROUTE .COMPLEX Qty: 90 4RF Dose Instruction: TAKE ONE CAPSULE BY MOUTH EVERY DAY Rx Instructions: TAKE ONE CAPSULE BY MOUTH EVERY DAY finasteride 5 mg tablet See Rx Instructions .ROUTE .COMPLEX Qty: 90 4RF Dose Instruction: TAKE ONE TABLET BY MOUTH EVERY DAY Rx Instructions: TAKE ONE TABLET BY MOUTH EVERY DAY travoprost [Travatan Z] 2.5 ML drops 1 drp Ophthalmic DAILY aspirin 325 mg Tablet 325 mg PO Q6H PRN acetaminophen [Tylenol] 325 mg Capsule 650 mg PO ONCE PRN epinephrine 0.3 MG/SYR auto-injector 0.3 mg IJ DIRECTED Patient Comments: pt. denies using and states he does not really know why he has it, reports itching and ER visit that resulted in pen Discharge Instructions Additional Instructions: You were seen in the emergency department for your nasal irritation. You have no obvious masses. You certainly may have a small nasal polyp. If you develop any bleeding from your nose if you develop any shortness of breath or chest pain please return to the emergency department. Otherwise a referrals been sent into your nose and throat team. Your CBC was reassuring against anemia. Your metabolic panel shows that your kidneys are working well. HPI General Date/Time Provider Initiated Documentation: 02/23/25 13:31. HPI Narrative: MDM This is an overall very well appearing afebrile but mildly tachycardic 79-year-old male with foreign body sensation in the back of his right nose along with shortness of breath for which patient will undergo laboratory evaluation and fiberoptic endoscopy in the emergency department. No hymenoptera stings to suggest anaphylaxis. No epistaxis to suggest benefit from nasal tamponade. No black nor bloody stools to suggest acute blood loss anemia. No chest pain to suggest ACS so I did not obtain an ECG. No lower extremity edema nor paroxysmal nocturnal dyspnea to suggest acute heart failure so I do not feel the patient requires echocardiogram nor diuretics. No history of tobacco use to suggest increased risk for malignancy though this remains in the differential secondary to the patient's age. No epistaxis to suggest Goodpasture's. No B symptoms to suggest malignancy. Will assess for any acute electrolyte abnormalities and renal dysfunction which could be suggestive of a granulomatosis with polyangiitis. Will reassess following labs and imaging. 3:30 PM Patient's metabolic panel had no acute electrolyte abnormalities. No ROSE MARY. CBC lacks anemia thrombocytopenia and leukocytosis. Chest x-ray read as no acute cardiopulmonary process. Following verbal consent and 1 mg of IV midazolam for anxiolysis and viscous lidocaine in the patient's right naris I completed a flexible nasopharyngoscopy at bedside. Patient tolerated procedure well. There was signs of some slight mucosal irritation. No obvious masses. No signs of hemorrhage. No obvious large nasal polyps. 3:53 PM I have asked health community health nurse supervisor Yenni to have patient seen within the next month by ENT. We discussed with patient to return to emergency department if he develops worsening shortness of breath chest pain nausea or vomiting or any bleeding or increasing nasal pain. He had a D-dimer that was negative based on years criteria, less than 1000 so I did not feel he required a CT scan of the chest. He understood his return indications and is discharged with an empiric trial of expectant outpatient management. HPI This is a patient presenting with nasal irritation and shortness of breath. The patient reports a sensation of dryness in his right nasal passage, extending to the soft palate. This discomfort was particularly noticeable during an episode last night when he woke up around 2:00 AM to urinate. He describes the sensation as if something is lodged in his nose, causing constant irritation. However, he does not experience any pain, stinging, or burning. Occasionally, he perceives a rough texture. He has not observed any foreign objects in his nose and reports no trauma or insertion of objects. He does not use tobacco products or consume alcohol daily. He does however have a remote prior history of tobacco use for 30 years. His strongest beverage is coffee. He has not experienced unintentional weight loss, night sweats, fevers, or chills. His breathing is generally normal, although he sometimes switches from nasal to mouth breathing, which results in a dry throat. He reports feeling slightly short of breath, which prompted his visit to the emergency department. He has no history of blood clots in his legs or lungs. He reports no black or bloody stools. He occasionally experiences a tickling sensation in his throat, which is alleviated by a small sip of hot water. He does not feel nauseous or vomit. He reports no chest pain or calf pain. He has no history of cancer. Exam General: Well-appearing in no acute distress speaking in complete sentences. Head: Normocephalic, atraumatic. Eye: Extraocular eye movements intact. No conjunctival injection. No scleral icterus. Ear, nose, mouth, throat: Grossly normal inspection. Normal voice, handling secretions normally. No signs of intraoral trauma. No epistaxis. No obvious nasal masses. No significant posterior oropharynx erythema nor obvious swelling. Neck: Trachea midline. Cardiovascular: Well-perfused distal extremities. Respiratory: Nonlabored respiration. Clear lungs bilaterally. Gastrointestinal: Nondistended abdomen. Musculoskeletal: No significant lower extremity pitting edema. Moving all 4 extremities spontaneously. Skin: Normal for age and race, grossly normal temperature and turgor. No acute rash. Neurologic: Alert and appropriate, no apparent acute deficits. Psychiatric: Mood and manner are appropriate. Grooming and personal hygiene are appropriate. Related Data Home Medications ?Medication ?Instructions ?Recorded ?Confirmed travoprost 0.004 % eye drops 1 drp ophthalmic (eye) DAILY 08/28/15 02/23/25 (Travatan Z) epinephrine 0.3 mg/0.3 mL 0.3 mg IJ DIRECTED 06/12/17 02/23/25 injection, auto-injector acetaminophen 325 mg capsule 650 mg PO ONCE PRN 03/17/19 02/23/25 (Tylenol) aspirin 325 mg tablet 325 mg PO Q6H PRN 03/17/19 02/23/25 finasteride 5 mg tablet See Rx Instructions .Route 07/07/24 02/23/25 .COMPLEX #90 tabs tamsulosin 0.4 mg capsule See Rx Instructions .Route 07/07/24 02/23/25 .COMPLEX #90 caps Previous Rx's ?Medication ?Instructions ?Recorded finasteride 5 mg tablet See Rx Instructions .Route 07/07/24 .COMPLEX #90 tabs tamsulosin 0.4 mg capsule See Rx Instructions .Route 07/07/24 .COMPLEX #90 caps Allergies Allergy/AdvReac Type Severity Reaction Status Date / Time amoxicillin (Amoxicillin) AdvReac Severe Gastric Unverified 02/23/25 13:34 distress, bleeding General ILA: 3 PFSH All Active Problems (Updated 02/23/25 @ 15:39 by Dontrell Ruiz MD) Nasal discomfort (Acute) Lower urinary tract symptoms (LUTS) (Acute) Gross hematuria (Acute) Clot retention of urine (Acute) Medical History (Updated 02/23/25 @ 15:39 by Dontrell Ruiz MD) Elevated PSA BPH (benign prostatic hyperplasia) Surgical History H/O cystoscopy S/P hernia repair S/P appendectomy Social History Smoking/Tobacco Use Status: Former Tobacco Use Smoking risk assessment performed?: Yes Alcohol Intake: never Drug use: Never Substance use type: does not use Do you feel safe at home: Yes Do you feel safe in your relationship?: Yes
[2025-02-23 13:38] VITALS: BP 153/85; PULSE 100; RESP 16; TEMP 35.9; O2SAT 93
[2025-02-23 13:50] VITALS: RESP 20
--- NOTE | 2025-02-23 14:15 | DI.RAD_ITS ---
Exam(s) XR CHEST 2V PA LATERAL EXAM: XR CHEST 2V PA LATERAL CLINICAL HISTORY: Shortness of breath TECHNIQUE: 2D digital imaging was performed. Two views. COMPARISON: CT CT CHEST LUNG CANCER SCREEN from 07/01/2022 FINDINGS: HEART: Normal size. Aorta: Not dilated. PULMONARY VASCULATURE: Normal. MEDIASTINUM: Unremarkable. LUNGS: Clear. PLEURAL SPACE: No pleural effusion or pneumothorax. BONE:Unremarkable for age. SOFT TISSUES: Unremarkable. IMPRESSION: No acute abnormality. DATA REPOSITORY: RADIATION DOSE DELIVERED:
[2025-02-23 15:04] LABS: Abs Immature Grans 0.05 10^3/uL (0.0-0.06); HCT 52.3 % (40.0-50.0); HGB 17.2 g/dL (13.5-17.5); Immature Grans % 0.6 %; MCH 29.6 pg (27.0-33.0); MCHC 32.9 % (32.0-36.0); MCV 90 fL (80-95); MPV 10.0 fL (8.0-11.0); Platelet Count 222 10^3/uL (130-400); RBC 5.82 10^6/uL (4.36-5.78); RDW 13.2 % (11.8-14.1); RDW-SD 43.2 fL; WBC 8.31 10^3/uL (4.4-10.8)
[2025-02-23 15:14] LABS: Anion Gap 8.1 mmol/L (3-11); BUN 10 mg/dL (7-18); CO2 29.9 mmol/L (21.0-32.0); Calcium 9.1 mg/dL (8.5-10.1); Chloride 103 mmol/L (98-107); Estimated GFR 90.58 (mL/min/1.73m2); Glucose 99 mg/dL (74-106); Potassium 3.9 mmol/L (3.5-5.1); Sodium 141 mmol/L (136-145)
[2025-02-23] MEDS: Lidocaine 2% Viscous 15 ML CUP 5 ML PO (15:20)
[2025-02-23] MEDS: Midazolam 2 MG/2 ML VIAL 1 MG IVP (15:20)
[2025-02-23 15:38] LABS: D-Dimer 863 ng/mlFEU (<500)
[2025-02-23 15:44] VITALS: BP 160/84; PULSE 83; RESP 20; O2SAT 94
== END 2025-02-23 16:06 | disposition home or self-care (01) ==
PROVIDERS: Emergency Provider Emergency Medicine; PCP Family Medicine
DX: J34.89 Other specified disorders of nose and nasal sinuses (principal); Z79.82 Long term (current) use of aspirin; Z87.891 Personal history of nicotine dependence
CPT/HCPCS: 31231; 36415; 80048; 99284; 71046; 85025; 85379; J2250